=== PATIENT | female | born 1965 | race African-American/Black ===

== ENCOUNTER → 2022-11-26 10:40 | Outpatient (CLI) | payer OTHER, SELFPAY ==
[2022-11-26 11:37] LABS: Hematocrit 40.5 % (36-46); Hemoglobin 13.4 g/dL (12.0-16.0); Mean Corpuscular HGB Conc 33.1 % (30-36); Mean Corpuscular Hemoglobin 29.6 PG (26-34); Mean Corpuscular Volume 89.3 fL (80-100); Platelet Count 338 X10^3/uL (150-400); Red Blood Cell Count 4.54 X10^6/uL (4.0-5.2); Red Cell Distribution Width 14.3 % (11.6-14.8); White Blood Cell Count 3.6 X10^3/uL (4.5-11.0)
[2022-11-26 11:47] LABS: Hemoglobin A1C% w Est Avg Glu 5.8 % (4.0-6.0)
[2022-11-26 12:30] LABS: Alanine Aminotransferase 34 IU/L (<35); Albumin 4.3 g/dL (3.5-5.0); Albumin Globulin Ratio 1.7 (1.0-2.8); Alkaline Phosphatase 76 U/L (38-126); Aspartate Aminotransferase 34 IU/L (14-36); BUN Creatinine Ratio 17.2 (6-22); Bilirubin Total 0.5 mg/dL (0.2-1.3); Blood Urea Nitrogen 15 mg/dL (7-17); Calcium 9.7 mg/dL (8.4-10.2); Carbon Dioxide 26 mmol/L (22-32); Chloride 102 mmol/L (98-107); Cholesterol 246 mg/dL (140-199); Estimated Glomerular Filt Rate > 60 mL/min (>60); Globulin 2.6 g/dL (1.7-4.1); Glucose 80 mg/dL (70-100); Potassium 4.5 mmol/L (3.4-5.1); Sodium 136 mmol/L (137-145); Total Protein 6.9 g/dL (6.3-8.2); Triglycerides 69 mg/dL (35-150)
[2022-11-26 12:38] LABS: HEMOLYSIS < 15 (0-50)
[2022-11-26 12:58] LABS: TSH w/ Reflex to FT4 4.58 uIU/mL (0.47-4.68)
[2022-11-26 13:05] LABS: HDL Cholesterol 119 mg/dL (40-60); LDL Cholesterol Calculated 113 mg/dL (<100)
== END ==
PROVIDERS: PCP Registered Nurse Diabetes Educator; Referring Provider Registered Nurse Diabetes Educator; Visit Provider Registered Nurse Diabetes Educator
DX: Z00.00 Encounter for general adult medical examination without abnormal findings (principal); E89.0 Postprocedural hypothyroidism
CPT/HCPCS: 36415; 80053; 80061; 83036; 84443; 85027

== ENCOUNTER → 2023-03-28 08:28 | Outpatient (CLI) | payer OTHER, SELFPAY ==
[2023-03-28 10:37] LABS: TSH w/ Reflex to FT4 2.41 uIU/mL (0.47-4.68)
== END ==
PROVIDERS: PCP Registered Nurse Diabetes Educator; Referring Provider Registered Nurse Diabetes Educator; Visit Provider Registered Nurse Diabetes Educator
DX: E89.0 Postprocedural hypothyroidism (principal)
CPT/HCPCS: 36415; 84443

== ENCOUNTER → 2023-05-20 10:39 | Outpatient (CLI) | payer OTHER, SELFPAY ==
[2023-05-20 11:17] LABS: Add Manual Diff / Slide Review NO; Basophils Absolute Auto 0 /uL (0-100); Basophils Percent Auto 0.5 % (0-2); Eosinophils Absolute Auto 100 /uL (0-450); Eosinophils Percent Auto 1.4 % (2-4); Hematocrit 39.5 % (36-46); Hemoglobin 13.1 g/dL (12.0-16.0); Lymphocytes Absolute Auto 2300 /uL (1100-4500); Mean Corpuscular HGB Conc 33.2 % (30-36); Mean Corpuscular Hemoglobin 29.6 PG (26-34); Mean Corpuscular Volume 89.2 fL (80-100); Monocytes Absolute Auto 400 /uL (0-900); Monocytes Percent Auto 7.4 % (3-14); Neutrophils Absolute Auto 2000 /uL (1500-7000); Neutrophils Percent Auto 41.7 % (50-75); Platelet Count 274 X10^3/uL (150-400); Red Blood Cell Count 4.43 X10^6/uL (4.0-5.2); Red Cell Distribution Width 13.5 % (11.6-14.8); White Blood Cell Count 4.7 X10^3/uL (4.5-11.0)
[2023-05-20 11:36] LABS: Alanine Aminotransferase 27 IU/L (<35); Albumin 4.5 g/dL (3.5-5.0); Alkaline Phosphatase 71 U/L (38-126); Aspartate Aminotransferase 29 IU/L (14-36); Bilirubin Total 0.7 mg/dL (0.2-1.3); Bilirubin Unconjugated 0.4 mg/dL (0.0-1.1); Globulin 2.3 g/dL (1.7-4.1); HEMOLYSIS < 15 (0-50); Total Protein 6.8 g/dL (6.3-8.2)
== END ==
LOC: LAB 10:43
PROVIDERS: PCP Registered Nurse Diabetes Educator; Referring Provider Podiatrist; Visit Provider Podiatrist
DX: B35.1 Tinea unguium (principal)
CPT/HCPCS: 36415; 80076; 85025

== ENCOUNTER → 2023-05-28 09:51 | Outpatient (CLI) | payer OTHER, SELFPAY ==
--- NOTE | 2023-05-28 09:53 | DI.RAD.S_ITS ---
PROCEDURE: XR FINGER LT MIN 2V INDICATIONS: Left thumb pain TECHNIQUE: AP hand, 2 views of the thumb finger(s) acquired. COMPARISON: None. FINDINGS: Bones: No fractures or dislocations. No suspicious bony lesions. Mild 1st carpometacarpal triscaphe osteoarthritic change. Soft tissues: No suspicious soft tissue calcifications. IMPRESSION: No acute bony abnormality. Mild osteoarthritic changes at the base of the thumb. Dictated by: Jose Sanabria M.D. on 05/28/2023 at 13:12 Approved by: Jose Sanabria M.D. on 05/28/2023 at 13:16
== END ==
LOC: RAD 09:52
PROVIDERS: PCP Registered Nurse Diabetes Educator; Referring Provider Nurse Practitioner Family; Visit Provider Nurse Practitioner Family
DX: M79.645 Pain in left finger(s) (principal)
CPT/HCPCS: 73140

== ENCOUNTER → 2023-10-12 15:52 | Outpatient (CLI) | payer OTHER, SELFPAY ==
--- NOTE | 2023-10-12 15:53 | DI.RAD.S_ITS ---
PROCEDURE: XR FOREARM LT 2V INDICATIONS: Fall down stairs on 10/05 - pain ulnar side proximal to wris TECHNIQUE: 2 views of the forearm were acquired. COMPARISON: None. FINDINGS: Bones: No fractures or dislocations. No suspicious bony lesions. Soft tissues: No suspicious soft tissue calcifications or masses. IMPRESSION: No visualized acute fracture or dislocation. However, if clinical concern and/or pain persist, short interval imaging followup in 7-10 days is recommended, as occult injury cannot be definitively excluded. Dictated by: Astrid Felix M.D. on 10/13/2023 at 11:16 Approved by: Astrid Felix M.D. on 10/13/2023 at 11:16
--- NOTE | 2023-10-12 15:53 | DI.RAD.S_ITS ---
PROCEDURE: XR FOOT RT MIN 3V INDICATIONS: Fall down stairs on 10/05 - pain 2nd metatarsal TECHNIQUE: 3 views of the foot were acquired. COMPARISON: None. FINDINGS: Bones: ORIF of the distal fibula. Hardware is intact without hardware fracture or periprosthetic lucency to suggest loosening. Alignment is stable. Calcaneal spur is present. Soft tissues: No tibiotalar joint effusion. Achilles tendon appears normal. IMPRESSION: No visualized acute fracture or dislocation. However, if clinical concern and/or pain persist, short interval imaging followup in 7-10 days is recommended, as occult injury cannot be definitively excluded. Dictated by: Astrid Felix M.D. on 10/13/2023 at 11:16 Approved by: Astrid Felix M.D. on 10/13/2023 at 11:19
== END ==
PROVIDERS: PCP Registered Nurse Diabetes Educator; Referring Provider Physician Assistant; Visit Provider Physician Assistant
DX: M77.31 Calcaneal spur, right foot (principal); M79.671 Pain in right foot; M79.632 Pain in left forearm; W10.8XXA Fall (on) (from) other stairs and steps, initial encounter; Z96.60 Presence of unspecified orthopedic joint implant
CPT/HCPCS: 73090; 73630

== ENCOUNTER → 2023-11-16 14:52 | Outpatient (CLI) | payer OTHER, SELFPAY ==
[2023-11-16 15:34] LABS: Add Manual Diff / Slide Review NO; Basophils Absolute Auto 100 /uL (0-100); Basophils Percent Auto 1.6 % (0-2); Eosinophils Absolute Auto 100 /uL (0-450); Eosinophils Percent Auto 2.4 % (2-4); Hematocrit 38.9 % (36-46); Lymphocytes Absolute Auto 2200 /uL (1100-4500); Lymphocytes Percent Auto 48.5 % (25-40); Mean Corpuscular HGB Conc 33.4 % (30-36); Mean Corpuscular Hemoglobin 29.6 PG (26-34); Mean Corpuscular Volume 88.7 fL (80-100); Monocytes Absolute Auto 300 /uL (0-900); Monocytes Percent Auto 7.2 % (3-14); Neutrophils Absolute Auto 1800 /uL (1500-7000); Neutrophils Percent Auto 40.3 % (50-75); Platelet Count 308 X10^3/uL (150-400); Red Blood Cell Count 4.39 X10^6/uL (4.0-5.2); Red Cell Distribution Width 14.2 % (11.6-14.8); White Blood Cell Count 4.4 X10^3/uL (4.5-11.0)
[2023-11-16 16:22] LABS: BUN Creatinine Ratio 16.3 (6-22); Blood Urea Nitrogen 14 mg/dL (7-17); Calcium 9.5 mg/dL (8.4-10.2); Carbon Dioxide 27 mmol/L (22-32); Chloride 103 mmol/L (98-107); Estimated Glomerular Filt Rate > 60 mL/min (>60); Glucose 114 mg/dL (70-100); HEMOLYSIS < 15 (0-50); Potassium 3.4 mmol/L (3.4-5.1); Sodium 135 mmol/L (137-145)
[2023-11-16 16:35] LABS: Hemoglobin A1C% w Est Avg Glu 5.4 % (4.0-6.0)
[2023-11-16 17:31] LABS: Appearance Urine UA CLEAR; Bilirubin Urine UA NEGATIVE (NEGATIVE); Color Urine UA YELLOW; Glucose Urine UA NEGATIVE (Negative); Ketones Urine UA NEGATIVE (NEGATIVE); Leukocyte Esterase Urine UA NEGATIVE (NEGATIVE); Nitrite Urine UA NEGATIVE (Negative); Occult Blood Urine UA NEGATIVE (Negative); Protein Urine UA NEGATIVE (Negative); Urobilinogen Urine UA 0.2 E.U./dL (0.2)
[2023-11-16 17:55] LABS: Bacteria Urine None Seen; RBC Urine None Seen (0-5/HPF); Squamous Epithelial Cell Urine 0-1 /HPF (0-5/HPF); Urine Volume 10mL (spun); WBC Urine None Seen (0-5/HPF)
[2023-11-16 17:56] LABS: Culture Indicated Urine Cult Not Indicated
== END ==
PROVIDERS: PCP Registered Nurse Diabetes Educator; Referring Provider Registered Nurse Diabetes Educator; Visit Provider Registered Nurse Diabetes Educator
DX: Z01.818 Encounter for other preprocedural examination (principal)
CPT/HCPCS: 80048; 81001; 83036; 85025

== ENCOUNTER 2023-12-19 05:59 | Day surgery (SDC) | payer OTHER, SELFPAY ==
[2023-12-11 12:52] VITALS: BMI 27.3
[2023-12-19] VITALS (14 sets, daily range): BP systolic 124–181; BP diastolic 76–100; PULSE 55–75; RESP 9–25; TEMP 35.6–36.8; O2SAT 99–100; BMI 26.6
--- NOTE | 2023-12-19 | DI.RAD.S_ITS ---
PROCEDURE: XR HIP W PEL IF DONE RT 2V INDICATIONS: RIGHT ANTERIOR TERESA TECHNIQUE: Low resolution intraoperative fluoroscopic spot films were obtained COMPARISON: None. FINDINGS: Intraoperative fluoroscopic spot films show right anterior total hip arthroplasty in good position IMPRESSION: Fluoroscopic guidance Approved by: Lukas Sotelo M.D. on 12/19/2023 at 12:14
--- NOTE | 2023-12-19 06:00 | DI.RAD.S_ITS ---
PROCEDURE: XR HIP W PEL IF DONE RT 2V INDICATIONS: TERESA TECHNIQUE: 2 view(s) of the hip acquired. COMPARISON: [facility], CR, XR HIP W PEL IF DONE RT 2V, 12/19/2023, 9:09. FINDINGS: Bones: Patient is status post right hip arthroplasty, with hardware components in expected positions. The hip joint appears congruent. The visualized bony structures appear intact. Soft tissues: Overlying postoperative changes are noted. No suspicious soft tissue densities. IMPRESSION: Expected post-operative appearance of a hip arthroplasty. Dictated by: Mary Quispe MD, PhD on 12/19/2023 at 11:28 Approved by: Mary Quispe MD, PhD on 12/19/2023 at 11:28
[2023-12-19] MEDS: LACTATED RINGERS 1,000 ML 42 ML IV (06:53)
[2023-12-19] MEDS: VANCOMYCIN 1,000 MG/200 ML PIGGYBACK 200 MG IV ×2 (06:53→18:56)
[2023-12-19] MEDS: ACETAMINOPHEN 325 MG TABLET 975 MG PO (06:56)
[2023-12-19] MEDS: CELECOXIB 200 MG CAPSULE PO (06:56)
--- NOTE | 2023-12-19 07:31 | PM.PREOP ---
Pre-operative Note Interval Note History & Physical reviewed/Exam performed by Physician: Yes Changes to H&P: No H&P completed within 30 days and has changed as indicated here:: Discussed in detail critical importance of wound care and keeping her incision dry postoperatively.
--- NOTE | 2023-12-19 07:32 | PM.OP.1 ---
Operative Date/Time/Diagnoses Date of procedure: 12/19/23 Time of procedure: 08:00 Pre-op diagnosis: Right hip osteoarthritis Post-op diagnosis: same Procedure & Clinicians Procedure: Right total hip arthroplasty anterior approach Same procedure as scheduled: Yes Indications: The patient has had progressively worsening right hip pain with radiographic changes consistent with arthritis. Non-operative management has failed and the patient has requested total hip replacement. The risks, benefits and alternatives to surgery were discussed with the patient prior to proceeding. Risks discussed included, but were not limited to, failure to relieve pain, leg length discrepancy, dislocation, stiffness, infection, nerve damage, deep venous thrombosis, pulmonary embolism, stroke, coma, heart attack, permanent paralysis and , as well as the potential need for eventual revision of the prosthetic. Surgeon: Maryam Burleson Installation And Repair Technician: Alex Whyte Anesthesia Type: General and Spinal Operative Notes Findings: Severe right hip OA, very tight femoral bone, hard bone adequate stability, small canal, adequate stability Closure Type: primary Specimen(s): none sent Prosthetic devices, grafts, tissues, transplants, or devices: [employer] R3 52, neutral poly liner, one 6.5 mm screw, standard anthology size 3 stem, Oxinium 36 x -3 Estimated Blood Loss (mL): 250 Blood products transfused: none Procedure in detail: The patient was brought to the operating room. Patient was carefully positioned in the supine position. Time-out was performed and antibiotics were given. Anesthesia was induced. She was positioned in the on the table in order to allow hyperextension of the hip. The right lower extremity was prepped and draped in a standard sterile fashion. An anterior right hip incision was made 1 fingerbreadth lateral to the anterior superior iliac spine and extended distally towards the greater trochanter. Dissection was carried out through skin and subcutaneous tissues. Superficial hemostasis was achieved. The fascia over the tensor fascia speedy was defined and incised with a knife. Two Allis clamps were used to grasp the fascia. Tensor fascia speedy was retracted laterally. A gelpi retractor was placed. Dissection was carried out down along the neck. The circumflex vessels were carefully identified and cauterized with the Aqua Mantis. A PA was used during the procedure and was essential for intraoperative retraction and safe implantation of the components. There was good visualization of the femoral neck. A Cobra was placed superior to the neck and the gluteus fibers were carefully stripped from that superior aspect of the capsule. A 2nd retractor was placed along the inferior aspect of the neck. The rectus insertion along the capsule was partially released. A 3rd retractor that was then gently placed over the rim of the acetabulum under the rectus. Capsule was carefully incised and released from the intertrochanteric line circumferentially superior to the mid sagittal line and inferiorly to the mid sagittal line until the lesser trochanter was palpable. A tag stitch was placed both in the superior and inferior limb of the capsular insertion. Along the acetabulum capsule was also released up to the mid sagittal 12:00 position. A portion of the labrum was resected. A saw was used to perform an osteotomy at the level of the intertrochanteric line and the junction of the superior femoral neck leaving approximately 1 finger breath of residual inferior neck above the lesser trochanter. A 2nd cut was made along the femoral neck at the base of the head and a napkin ring of neck was removed. Corkscrew was placed in the femoral head and the head was removed without difficulty. Retractors were then repositioned around the acetabulum. Residual labrum was resected and additional osteophytes were removed. A reamer that was 4 mm below the templated size was placed by hand in the acetabulum and it was reamed to centralize the acetabulum. It was then reamed up to 2 under the templated size and fluoroscopy was brought in to confirm the position of the reaming and depth of reaming. I reamed 1 under the anticipated size. A trial cup was placed and noted that it was appropriately sized and fluoroscopy confirmed position and depth. The component was open and inserted without difficulty fluoroscopic imaging was used to confirm that the cup had been adequately seated and was well positioned. It was further stabilized with a single screw. Neutral poly liner was placed. The cup was tested and noted to be stable. Attention was then directed to the femur. The femur was gently hyperextended additional capsular release was performed as needed in order to allow adequate visualization of the proximal femur with elevation of the femur. Patient was placed in a hyperextended slightly adducted position with maximum external rotation. Box osteotome was used to check for any residual neck as well as sclerotic bone along the trochanter. [place] pepper was placed in the femur. Additional broaching was performed. Canal finder was used to determine the alignment of the canal and position. The patient had a significant anterior bow and an extremely tight canal. We had both polar technology and anthology technology available. It was quite tight with an anthology. Size 1 broach was placed. The size 1 broach was quite tight in the canal. We checked the the broach position with AP and lateral and it looked like it was well centralized in the canal. The canal was then appropriately broached up to the templated size as long as there was adequate stability of the broach and serial advancement of the broach without excessive impingement. Specific attention was directed at avoiding varus attempting to direct the distal aspect of the broach more anteriorly and avoiding excessive anteversion. Trial reduction showed acceptable range of motion, good stability, no posterior impingement, congregation of leg length and appropriate lateral shuck. I also hyperflexed the hip and checked that there was no impingement anteriorly and there was good stability with flexion, adduction and internal rotation. Marcaine and Exparel 266 mg for postoperative pain relief were injected. The stem was placed without difficulty. Repeat trial reduction and x-ray showed acceptable overall position, length, and no evidence of the femoral fracture. Final head was placed. Wound was meticulously irrigated with normal saline. The hip was reduced and additional Exparel and Marcaine were injected. The capsule was closed with interrupted nonabsorbable sutures. The fascia of the tensor was closed with interrupted and running Vicryl. No drain was placed. Any tensor fascia speedy muscle that appeared to be contused or injured which was a minimal amount was carefully resected. Capsule around the tensor was injected with Exparel and Marcaine. The skin was closed with barbed stitches for the subcutaneous tissue and skin. We also used surgical glue. The wound was dressed sterilely. It was meticulously irrigated with normal saline. Patient was transferred to recovery room in satisfactory condition. Complications: none Post-operative Condition: stable Disposition: Acute Care Plan for aftercare: The patient will be maintained on a standard total hip replacement protocol with weight bearing as tolerated and anterior hip precautions. The patient will receive Aspirin and sequential compression devices for DVT prophylaxis. The patient will be discharged home when safe for the home environment.
[2023-12-19] MEDS: CLINDAMYCIN 900 MG/50 ML PIGGYBACK 50 MG IV (07:58)
--- NOTE | 2023-12-19 08:15 | SUR.OPER ---
Supine on padded [place] table with bilateral legs secured in padded positioning boots and suspended in positioning spars, operative leg in traction per surgeon. Head on one pillow. Arm on non-operative side secured on padded armboard <90 degrees abduction. Arm on operative side padded and resting across chest then secured with tape over sheet. Padded perineal post in place per surgeon.
[2023-12-19] MEDS: TRANEXAMIC ACID 1,000 MG VIAL 1000 MG INJ ×2 (08:47→10:31)
[2023-12-19] MEDS: BUPIVACAINE LIPOSOME 266 MG/20 ML VIAL INJ (10:30)
[2023-12-19] MEDS: BUPIVACAINE 0.25% (PF) 60 ML, EPINEPHrine 0.3 MG INJ (10:30)
[2023-12-19] MEDS: ONDANSETRON 4 MG/2 ML INJ IV ×4 (11:05→21:02)
[2023-12-19] MEDS: HYDROMORPHONE 2 MG TABLET PO ×3 (11:13→21:13)
[2023-12-19] MEDS: HYDROMORPHONE 0.5 MG INJ IV (12:31)
[2023-12-19] MEDS: LACTATED RINGERS 1,000 ML 100 ML IV (12:31)
[2023-12-19] MEDS: ACETAMINOPHEN 325 MG TABLET 650 MG PO ×2 (12:32→21:13)
[2023-12-19] MEDS: OXYCODONE IR 5 MG TABLET PO ×2 (12:32→16:30)
[2023-12-19] MEDS: IBUPROFEN 400 MG TABLET PO ×3 (12:32→23:06)
--- NOTE | 2023-12-19 15:30 | OT.IP.EVAL ---
Current Diagnoses Unilateral primary osteoarthritis, right hip (12/19/23) Surgery Performed Operation Date: 12/19/23 07:45 Actual Procedures p Total Hip Arthroplasty/Anterior Approach(Right) - Maryam Burleson MD Past Medical History (Last Updated 12/03/23 @ 08:26 by DILEEP Saldaña) Bipolar disorder in partial remission History of electroconvulsive therapy History of thyroid cancer Migraine without aura and without status migrainosus, not intractable Obstructive sleep apnea On hormone replacement therapy Postoperative hypothyroidism Surgical History (Last Updated 12/11/23 @ 13:24 by Radha Clements RN) Delivery by section (2004) H/O arthroscopy of right knee (2005) History of ankle surgery (~1989) History of Kan-en-Y gastric bypass (2015) History of thyroidectomy, total (2007) Occupational Therapy Inpatient Evaluation/Re-Eval M1 PT/OT-IP Prior Functional Status Start: 12/19/23 15:42 Freq: NEEDED Status: Active Protocol: Document 12/19/23 15:43 [facility] (Rec: 12/19/23 15:59 [facility] [id number]) Medical Review Prior Functional Status Communication Independent Mobility and Gait Pt had pain but able to ambulate. Activities of Daily Living and IADL's Pt able to do ADL and IADL needs but had pain. Social History Household Members none Living Arrangements House Number of Floors (Floors) Two Floors Number of Stairs To Enter/Railing? 2 stairs without railing to enter. Main floor living. Home Environment High Toilet,Walk in Shower Home Equipment Front Wheel Walker,Hand Held Shower,Grab Bars Near Toilet Additional Social History Comment Pt states her neighbor can assist her. M2 OT-IP Current Condition Start: 12/19/23 15:42 Freq: Status: Active Protocol: Document 12/19/23 15:43 [facility] (Rec: 12/19/23 15:59 [facility] [id number]) Occupational Therapy Current Condition Current Condition Evaluation Date 12/19/23 Treatment Diagnosis S/P R TERESA Anterior approach Diagnosis Onset Date 12/19/23 Post Operative Precautions Anterior Hip Precautions No Hip Extension,No Hip External Rotation Other Precautions Do not hyperextend M3 OT- IP Subjective and Pain Start: 12/19/23 15:42 Freq: Status: Active Protocol: Document 12/19/23 15:43 [facility] (Rec: 12/19/23 15:59 [facility] [id number]) OT- Subjective Occupational Therapy Visit Type Type Initial Evaluation Visit Start Time 14:35 Visit Stop Time 15:30 Occupational Therapy Visit Comments Patient Comments Pt agreed to get up and try to use the BSC. Patient/Caregiver Goals To go home. OT Pain Assessment Pain When Pain Assessed At Rest Pain Present Pain Present Pain Reported Location right hip Intensity 7 Scale Used Numeric (0 - 10) M4 OT- IP ADL's Start: 12/19/23 15:42 Freq: Status: Active Protocol: Document 12/19/23 15:43 [facility] (Rec: 12/19/23 15:59 [facility] [id number]) OT [id number] Comments OT Self-Feeding Comments Pt states able to eat yogurt earlier. OT ADL-Grooming Comments OT Grooming Comments Pt able to wash her face after set-up. OT ADL-Oral Care Comments Oral Care Comments Pt able to rinse her mouth out after dry heaving. OT ADL-Dressing General Eval Lower Body Dressing Ability Maximum Assistance Areas Needing Assistance Underpants/Brief,Socks Comments OT Dressing Comments Able to show pt LB dressing equipment and able to practice . OT ADL-Toileting General Evaluation Toileting Ability Maximum Assistance Comments OT Toileting Comments At this time needing MAXA for brief management and unable to feel her aleah area at this time to be able to wipe effectively. OT ADL-Bathing Comments OT Bathing Comments Pt will benefit from shower chair and assist. M5 OT- IP IADL's Start: 12/19/23 15:42 Freq: Status: Active Protocol: Document 12/19/23 15:43 [facility] (Rec: 12/19/23 15:59 [facility] [id number]) OT-Instrumental Activities of Daily Living Deficits IADL Deficits Identified No Deficits Home Safety Awareness Home Safety Comments Pt not feeling or thinking well at this time as very light headed. Medication Management Medication Management Comments Prior pt able to care for herself. Money Management Money Management Comments Prior pt works from home. Meal Preparation Meal Preparation Comments Pt will benefit from assist. Um Rn Um Rn Comments Pt will benefit from assist. M6 OT- IP Functional Cognition Start: 12/19/23 15:42 Freq: Status: Active Protocol: Document 12/19/23 15:43 [facility] (Rec: 12/19/23 15:59 [facility] [id number]) Cognitive Factors Limiting Selfcare Function Cognitive Ability Level of Alertness Drowsy Patient Orientation Name,Place,Situation Attention Span Ability Capable of Focused Attention, Capable of Sustained Attention ,Unable to Sustain Attention Ability to Follow Commands Able to Follow One Step Commands with Increased Time, Able to Follow One Step Commands with Repetition Safety Awareness Decreased Recall of Precautions Cognitive Comments Cognitive Assessment Comments Pt very groggy and light headed and needing step by step commands to follow. Pt still not able to feel when she has to urinate at this time. OT- Vision and Hearing OT- Hearing Assessment OT- Hearing Assessment WFL OT- Vision Assessment Visual Acuity Glasses For Reading Visual Attentiveness WFL Occular Pursuits WFL M7 OT- IP Mobility and Balance Start: 12/19/23 15:42 Freq: Status: Active Protocol: Document 12/19/23 15:43 [facility] (Rec: 12/19/23 15:59 [facility] [id number]) OT- Bed Mobility Assessment Supine to Sit Supine to Sit Assist Minimal Assistance Sit to Supine Sit to Supine Assist Moderate Assistance Scooting Scooting to Edge of Bed Contact Guard Assistance OT-Transfer Assessment Sit to and From Stand Sit to and from Stand Minimal Assistance Transfers Transfer Ability Minimal Assistance Technique Transfer Destination Bed,Bedside Commode Transfer Technique Stand Step Pivot Devices Transfer Assistive Devices Gait Belt,Front Wheeled Walker Comments Mobility Comments Assist to get her RLE to the edge of the bed and cues to keep her toes up. MODA to get her RLE back to bed. ALFA to stand to the FWW and assist to guide the FWW initially. BP supine with HOB up 172/103, 162/104, and 164/86. BP supine 154/86 and after sitting again 148/82- pt feeling light headed and nursing notified. OT- Balance Assessment Sitting Balance and Reactions Static Sitting Balance Ability Good Dynamic Sitting Balance Ability Fair Standing Balance and Reactions Static Standing Balance Ability Fair Dynamic Standing Balance Ability Fair M8 OT- IP Objective Assessments Start: 12/19/23 15:42 Freq: Status: Active Protocol: Document 12/19/23 15:43 [facility] (Rec: 12/19/23 15:59 [facility] [id number]) OT Gross Range of Motion Upper Extremity Range of Motion Assessment Within Functional Limits OT Strength Upper Extremity Strength Assessment Within Functional Limits OT Sensation Assessment Comments Summary Comments Decreased sensation in aleah- area and right foot. M9 OT- IP Assessment and Plan Start: 12/19/23 15:42 Freq: Status: Active Protocol: Document 12/19/23 15:43 [facility] (Rec: 12/19/23 15:59 [facility] [id number]) OT Summary Assessment and Plan Potential Rehabilitation Potential Excellent Analytic Complexity at Evaluation Low Summary OT Impairments Pain,Balance,Functional Mobility,Dressing,Toileting, Bathing,Toilet Transfers, Shower Transfers,Activity Tolerance Progress Towards Goals Slow Progress due to Pain,Slow Progress due to Medical Issues,Slow Progress due to Activity Tolerance Assessment Summary Pt low complexity and main barriers are steps, still groggy and lightheaded after having surgery this morning. At this time pt would benefit from 24/7 assist at home especially as she has dogs at home. Pt having difficulty to feel and empty her bladder at this time. Pt to go home with 24/7 assist when medically stable. Pt will benefit from BSC, shower chair, pads/brief and LB dressing equipment. Goals Grooming Goal Independent Dressing Goal Independent Toileting Goal Independent Bathing Goal Minimal Assistance Toilet Transfer Goal Independent Shower Transfer Goal Standby Assistance Days to Meet Goals 5 Frequency of Treatment Other frequency 5x/week Treatment Plan OT Treatment Plan ADL Training,Functional Mobility,Patient/Family Education,Discharge Planning Other Treatment Recommendations and Next Standing ADL's Treatment Focus Discharge Recommendations OT Discharge Recommendations Home with 24/7 Assist Available,Outpatient PT Home Equipment Needs BSC, shower chair, pads/brief, LB dressing equipment Transportation Needs at Discharge Private Vehicle
--- NOTE | 2023-12-19 16:10 | PT.IIE ---
Current Diagnoses Unilateral primary osteoarthritis, right hip (12/19/23) Surgery Performed Operation Date: 12/19/23 07:45 Actual Procedures p Total Hip Arthroplasty/Anterior Approach(Right) - Maryam Burleson MD Surgical History (Last Updated 12/11/23 @ 13:24 by Radha Clements RN) Delivery by section (2004) H/O arthroscopy of right knee (2005) History of ankle surgery (~1989) History of Kan-en-Y gastric bypass (2015) History of thyroidectomy, total (2007) Medical History (Last Updated 12/03/23 @ 08:26 by DILEEP Saldaña) Bipolar disorder in partial remission History of electroconvulsive therapy History of thyroid cancer Migraine without aura and without status migrainosus, not intractable Obstructive sleep apnea On hormone replacement therapy Postoperative hypothyroidism Physical Therapy Inpatient Evaluation/Re-Eval M1 PT/OT-IP Prior Functional Status Start: 12/19/23 16:55 Freq: NEEDED Status: Active Protocol: Document 12/19/23 16:10 AB (Rec: 12/19/23 17:10 AB [id number]) Medical Review Prior Functional Status Medical History Reviewed Yes Communication able to make needs known Mobility and Gait pt stated that she was independent with all mobilities and ambulation without AD Activities of Daily Living and IADL's per OT note: Pt able to do ADL and IADL needs but had pain. Social History Household Members none Living Arrangements House Number of Floors (Floors) Two Floors Number of Stairs To Enter/Railing? pt stays on the main level of the house has 2 steps without rails to enter the house Home Environment High Toilet,Walk in Shower Home Equipment Front Wheel Walker,Hand Held Shower,Grab Bars Near Toilet, Grab Bars In Shower Additional Social History Comment pt stated that her friend/ neighbor will be able to stay with her to assist if needed M2 PT-IP Current Condition Start: 12/19/23 16:55 Freq: NEEDED Status: Active Protocol: Document 12/19/23 16:10 AB (Rec: 12/19/23 17:10 AB [id number]) Physical Therapy Current Condition Current Condition Evaluation Date 12/19/23 Treatment Diagnosis s/p R TERESA anterior; difficulty in walking Onset Date 12/19/23 M3 PT-IP Subjective Start: 11/12/24 16:55 Freq: NEEDED Status: Active Protocol: Document 12/19/23 16:10 AB (Rec: 12/19/23 17:10 AB [id number]) Subjective Physical Therapy Visit Type Type Initial Evaluation Visit Start Time 16:10 Visit Stop Time 16:50 Number of BLANKET WINDER OPERATOR Visits 0 Physical Therapy Visit Comments Patient Comments want to use the toilet Therapy Pain Assessment Pain When Pain Assessed At Rest Pain Present Pain Present Pain Reported Location right hip Intensity 7 Scale Used increases with movement Pain Management Techniques Apply Cold,Distraction, Modification of Treatment,Re- positioning,Timing of Activity with Medications M4 PT-IP Mobility and Gait Start: 12/19/23 16:55 Freq: NEEDED Status: Active Protocol: Document 12/19/23 16:10 AB (Rec: 12/19/23 17:10 AB [id number]) PT-Bed Mobility Assessment Supine to Sit Supine to Sit Minimal Assistance Sit to Supine Sit to Supine Maximum Assistance,1 Person Assistance,Head of Bed Elevated PT-Transfer Assessment Sit to and From Stand Sit to and from Stand Maximum Assistance,1 Person Assistance,Use of Upper Extremities Equipment Transfer Assistive Device Gait Belt,Front Wheeled Walker Orthotic/Prosthetic Devices or Brace: No Transfers Transfer Destination Bedside Commode Transfer Technique Stand Step Pivot Transfer Ability Level of Assist Moderate Assistance,Maximum Assistance,1 Person Assistance ,Use of Upper Extremities Comments Mobility Comments pt supine in bed and agreeable to do PT. pt wants to use the toilet. obtained PLOF and home set up. reviewed hip precautions and pt unable to recall. needed cues with all tasks. BP: 138/70 completed supine to sit with HOB elevated min A and max cues for techniques. c/o increase hip pain. able to sit on EOB SBA. c/o nausea. BP checked: 156/80. pt stated that she does not think she can walk due to increase pain and wants to just use the bedside commode. completed sit to stand max A and step transfer to commode using FWW mod A and max cues. max A for controlled descent to chair. pt needed assist for brief management. completed sit to stand from the commode max A and cues. able to take a few steps towards HOB using fWW mod to max A and cues ~ 2 ft and sat on EOB. completed bed mobility sit to supine max A for elevating RLE up to bed. positioned pt in bed. ice pack positioned on R hip. NAC in room and took over pt's care. caregiver training set up at 9 am tomorrow. Gait Assessment Gait Gait Assistance Required: Moderate Assistance,Maximum Assistance Distance (Feet) 2 Assistive Devices Assistive Device Gait Belt,Front Wheeled Walker Gait Deviations General Gait Pattern Antalgic,Decreased Feet Clearance,Step-to Gait Factors Limiting Gait Function Factors Limiting Gait Function Decreased Activity Tolerance, Decreased Strength,Difficulty Following Directions,Limited Range of Motion,Pain,Poor Balance,Poor Safety Awareness Comments Gait Comments able to take steps towards [facility] for transfer PT-Balance Assessment Sitting Balance and Reactions Static Sitting Balance Ability Good Dynamic Sitting Balance Ability Fair Standing Balance and Reactions Static Standing Balance Ability Poor Dynamic Standing Balance Ability Poor Device Used FWW M5 PT-IP Objective Assessments Start: 12/19/23 16:55 Freq: NEEDED Status: Active Protocol: Document 12/19/23 16:10 AB (Rec: 12/19/23 17:10 AB [id number]) Orientation Orientation/Cognition Level of Alertness Alert Orientation Name,Place,Situation Safety Awareness Decreased Safety Awareness Memory Description Short Term Impaired Gross Range of Motion Lower Extremity ROM Assessment Within Functional Limits Strength Lower Extremity Strength Assessment Right Impaired Hip 3+/5 Knee 3+/5 Sensation Assessment Sensation Sensation Description Numbness Comments Sensation Comments buttocks/abdomen numbness and R foot numbness Muscle Tone Muscle Tone WNL Yes M6 PT-IP Treatment Start: 12/19/23 16:55 Freq: NEEDED Status: Active Protocol: Document 12/19/23 16:10 AB (Rec: 12/19/23 17:10 AB [id number]) Physical Therapy Treatment Exercises Exercises Heel Slides Education Education Provided Precautions,Weight Bearing Status,Post-Op Packet,Safety M7 PT-IP Assessment and Plan Start: 12/19/23 16:55 Freq: NEEDED Status: Active Protocol: Document 12/19/23 16:10 AB (Rec: 12/19/23 17:10 AB [id number]) PT Summary Assessment and Plan Potential Rehabilitation Potential Fair Status of Condition at Evaluation Evolving Summary Impairments Pain,ROM,Strength,Balance, Coordination,Sensation,Tone, Cognition,Bed Mobility, Transfers,Gait,Activity Tolerance Assessment Summary pt is a 58 y/o F s/p R TERESA anterior approach POD 0. pt with R anterior hip precautions and is WBAT. pt requiring mod to max A for transfers using fWW and unable to ambulate at this time but was able to take a few steps during transfer using fWW ~ 2 ft. pt with c/o increase R hip pain affecting mobility level . d/c plan depending on progress. will continue to assess. caregiver training set up for tomorrow at 9 am. Goals Bed Mobility Goal Standby Assistance Transfer Goal Standby Assistance,Front Wheeled Walker Gait Goal Standby Assistance,Front Wheel Walker Gait Distance 150 Other Goals improve bed mobility, transfers, ambulation using FWW ~ 200 ft mod I up/down 2 steps LOBBY PORTER/+SPC CGA Days to Meet Goals 5 Frequency of Treatment Frequency Of Treatment Twice a Day Treatment Plan Physical Therapy Treatment Plan Bed Mobility Training,Transfer Training,Gait Training, Therapeutic Exercise,Balance Retraining,Post Op Education, Discharge Planning,Hot or Cold Pack,Neuromuscular Re-ed, Coordination Retraining,Manual Therapy Other Recommendations and Next Treatment caregiver trainin12/20/23 @ [facility] 9 am Precautions Anterior Hip Precautions No Hip Extension,No Hip External Rotation Weight Bearing Status Weight Bearing Status Weight Bear as Tolerated Allowed Weight Bearing Amount (enter % RLE WBAT or #) (%) Recommendations To Nursing Amount of Assist Needed 1 Person Assist Discharge Recommendations PT Discharge Recommendations Home with 29/08 Assist Available,Home Health,SNF Rehab,Home vs SNF Transportation Needs at Discharge Private Vehicle,Wheelchair/ Cabulance
[2023-12-19] MEDS: METOCLOPRAMIDE 10 MG/2 ML INJ IV (18:13)
[2023-12-19] MEDS: DOCUSATE 100 MG CAPSULE PO (21:12)
[2023-12-19] MEDS: ASPIRIN EC 81 MG TABLET PO (21:12)
[2023-12-19] MEDS: PROGESTERONE, MICRONIZED 100 MG CAPSULE 200 MG PO (21:54)
[2023-12-20] MEDS: ONDANSETRON 4 MG/2 ML INJ IV (02:47)
[2023-12-20] MEDS: HYDROMORPHONE 2 MG TABLET PO ×3 (02:48→09:11)
[2023-12-20] MEDS: IBUPROFEN 400 MG TABLET PO (05:24)
[2023-12-20] MEDS: ACETAMINOPHEN 325 MG TABLET 650 MG PO (05:24)
[2023-12-20 06:24] LABS: Hematocrit 39.6 % (36-46)
--- NOTE | 2023-12-20 06:58 | DI.RAD.S_ITS ---
PROCEDURE: XR FEMUR RT MIN 2V INDICATIONS: s/p TERESA, now with sharp distal femur pain TECHNIQUE: 4 views of the femur were acquired. COMPARISON: None. FINDINGS: Bones: Total right hip arthroplasty intact without evidence of failure. No fractures or dislocations. No suspicious bony lesions. Moderate tricompartmental osteoarthritis of the right knee. Soft tissues: No suspicious soft tissue calcifications or masses. Moderate diffuse soft tissue muscle atrophy of the right lower extremity. IMPRESSION: 1. Moderate tricompartmental osteoarthritis of the right knee. 2. No acute skeletal or hardware abnormality. Dictated by: Remberto Cohn M.D. on 12/20/2023 at 9:22 Approved by: Remberto Cohn M.D. on 12/20/2023 at 9:24
--- NOTE | 2023-12-20 06:59 | PM.PNPO.1 ---
Subjective Subjective Date Patient Seen: 12/20/23 Time Patient Seen: 06:59 Interval history: Pt lying in bed on visit today. Worked with PT yesterday and things went well. Got up last night to use the commode and felt a sharp, stabbing pain in the region of her distal femur. Otherwise doing well. Exam Vital Signs (past 8 hours): Oxygen Delivery Method Room Air Oxygen Flow Rate 0 Narrative Exam Narrative: 4/5 hip flexors, quadriceps, hamstrings; 5/5 PF, DF, EHL on right. Sensation to light touch intact throughout RLE. Calf soft and compressible. Aquacel dressing CDI. Point tenderness to an area about 5-6 inches proximal to the patella. Objective Labs 12/20/23 05:30 Labs: Laboratory Results - last 24 hr 12/20/23 05:30 Hgb 13.0 Hct 39.6 PFSH Medical History (Updated 12/03/23 @ 08:26 by DILEEP Saldaña) On hormone replacement therapy Migraine without aura and without status migrainosus, not intractable History of electroconvulsive therapy Bipolar disorder in partial remission Obstructive sleep apnea Postoperative hypothyroidism History of thyroid cancer Surgical History (Updated 12/20/23 @ 07:20 by Shefali Coleman PA-C) Delivery by section (2004) H/O arthroscopy of right knee (2005) History of ankle surgery (~1989) History of Kan-en-Y gastric bypass (2015) History of thyroidectomy, total (2007) Social History household members: none Smoking Status: Never smoker alcohol intake: current Assessment & Plan Post-op Assessment and plan (1) S/P total hip arthroplasty: Assessment and Plan narrative: Will get urgent femur xray to r/o periprosthetic fracture. If xray is negative, pt would like to go home today. Requests Dilaudid for discharge as oxycodone causes severe nausea; we agreed that I would send an rx of hydrocodone for her to try. (2) History of Kan-en-Y gastric bypass: Assessment and Plan narrative: Discussed with patient that because of RYGBP history, she should never have NSAIDs again. Instructed her to throw away IBPN. She says her PCP, Dr Chairez, is willing to rx meloxicam if that would be a better option. I advised her that this should be ok: limit dose to 15mg max per day and time of use to 4 weeks. Postoperative Procedures: Procedures Operation Date: 12/19/23 07:45 Actual Procedure Side Surgeon p Total Hip Arthroplasty/Anterior Approach Right Maryam Burleson MD Postoperative day: 1
--- NOTE | 2023-12-20 07:02 | PC.NURSE ---
At about 0515 patient was getting back into bed after using the BSC and complained of a sharp pain to right upper mid thigh, about 3 inches below distal end of drsg. Area tender to the touch, soft. Denied any tingling or numbness. Ibuprofen and Tylenol given with minimal relief, then Dilaudid 2 mg po with good relief, patient fell asleep. Jared Funes here and aware.
[2023-12-20 08:00] VITALS: BP 140/76; PULSE 65; RESP 18; TEMP 36.8; O2SAT 100
[2023-12-20] MEDS: ASPIRIN EC 81 MG TABLET PO (09:11)
[2023-12-20] MEDS: DOCUSATE 100 MG CAPSULE PO (09:11)
[2023-12-20] MEDS: ONDANSETRON 4 MG ODT PO ×2 (09:11→12:20)
--- NOTE | 2023-12-20 09:35 | PT.IPTN ---
Current Diagnoses Unilateral primary osteoarthritis, right hip (12/19/23) Presence of unspecified artificial hip joint (12/19/23) Bariatric surgery status (12/19/23) Surgery Performed Operation Date: 12/19/23 07:45 Actual Procedures p Total Hip Arthroplasty/Anterior Approach(Right) - Maryam Burleson MD Physical Therapy Treatment Note M2 PT-IP Current Condition Start: 12/19/23 16:55 Freq: NEEDED Status: Active Protocol: Document 12/19/23 16:10 AB (Rec: 12/19/23 17:10 AB [id number]) Physical Therapy Current Condition Current Condition Evaluation Date 12/19/23 Treatment Diagnosis s/p R TERESA anterior; difficulty in walking Onset Date 12/19/23 M3 PT-IP Subjective Start: 12/19/23 16:55 Freq: NEEDED Status: Active Protocol: Document 12/20/23 10:23 TS (Rec: 12/20/23 10:36 TS [id number]) Subjective Physical Therapy Visit Type Type Treatment Note Visit Start Time 09:35 Visit Stop Time 10:00 Number of DRAWBRIDGE OPERATOR Visits 1 Physical Therapy Visit Comments Patient Comments Pt found resting in the bed, reports pain is 6/10, she is agreeable to PT. Therapy Pain Assessment Pain When Pain Assessed At Rest Pain Present Pain Present Pain Reported Location right hip Intensity 6 Scale Used Numeric (0 - 10) Pain Behaviors Facial Grimacing,Guarding, Holding Area,Wincing Pain Management Techniques Apply Cold,Distraction, Modification of Treatment,Re- positioning,Timing of Activity with Medications M4 PT-IP Mobility and Gait Start: 12/19/23 16:55 Freq: NEEDED Status: Active Protocol: Document 12/20/23 10:23 TS (Rec: 12/20/23 10:36 TS [id number]) PT-Bed Mobility Assessment Supine to Sit Supine to Sit Standby Assistance Sit to Supine Sit to Supine Minimal Assistance,1 Person Assistance Scooting Scooting to Edge of Bed Standby Assistance PT-Transfer Assessment Sit to and From Stand Sit to and from Stand Contact Guard Assistance,1 Person Assistance,Use of Upper Extremities Equipment Transfer Assistive Device Gait Belt,Front Wheeled Walker Orthotic/Prosthetic Devices or Brace: No Comments Mobility Comments Pt recalls 2/2 precautions. Supine to sit SBA with HOB elevated. Caregiver dons gait belt prior to STS.STS with FWW CGA, pt demonstrates good carryover. She ambulates in the room ~25'SBA with cues for step to gait sequencing. She performs steps x2 with use of SPC and ADON from caregiver. Pt has some difficulty with steps but does complete. Sit to supine into bed Jeremiah for RLE. Education provided to pt for intensity and frequency of ther-ex. Pt was left in bed, all needs met. Gait Assessment Gait Gait Assistance Required: Standby Assistance Distance (Feet) 25 Assistive Devices Assistive Device Gait Belt,Front Wheeled Walker Orthotic/Prosthetic Devices or Brace: No Gait Deviations General Gait Pattern Antalgic,Decreased Feet Clearance,Step-to Gait Factors Limiting Gait Function Factors Limiting Gait Function Decreased Activity Tolerance, Decreased Strength,Difficulty Following Directions,Limited Range of Motion,Pain,Poor Balance,Poor Safety Awareness Stair Climbing Assessment Evaluation Level of Assist On Stairs Moderate Assistance,1 Person Assistance Devices Stair Climbing Assistive Devices Straight Cane Technique/Endurance Stair Climbing Direction Ascend and Descend Stair Climbing Technique Step to Step Number of Steps Climbed 2 PT-Balance Assessment Sitting Balance and Reactions Static Sitting Balance Ability Good Dynamic Sitting Balance Ability Fair Standing Balance and Reactions Static Standing Balance Ability Fair Dynamic Standing Balance Ability Fair Device Used FWW M5 PT-IP Objective Assessments Start: 12/19/23 16:55 Freq: NEEDED Status: Active Protocol: Document 12/19/23 16:10 AB (Rec: 12/19/23 17:10 AB [id number]) Orientation Orientation/Cognition Level of Alertness Alert Orientation Name,Place,Situation Safety Awareness Decreased Safety Awareness Memory Description Short Term Impaired Gross Range of Motion Lower Extremity ROM Assessment Within Functional Limits Strength Lower Extremity Strength Assessment Right Impaired Hip 3+/5 Knee 3+/5 Sensation Assessment Sensation Sensation Description Numbness Comments Sensation Comments buttocks/abdomen numbness and R foot numbness Muscle Tone Muscle Tone WNL Yes M6 PT-IP Treatment Start: 12/19/23 16:55 Freq: NEEDED Status: Active Protocol: Document 12/20/23 10:23 TS (Rec: 12/20/23 10:36 TS [id number]) Physical Therapy Treatment Education Education Provided Precautions,Weight Bearing Status,Post-Op Packet,Safety M7 PT-IP Assessment and Plan Start: 12/19/23 16:55 Freq: NEEDED Status: Active Protocol: Document 12/20/23 10:23 TS (Rec: 12/20/23 10:36 TS [id number]) PT Summary Assessment and Plan Potential Rehabilitation Potential Fair Summary Impairments Pain,ROM,Strength,Balance, Coordination,Sensation,Tone, Cognition,Bed Mobility, Transfers,Gait,Activity Tolerance Progress Towards Goals Progressing Toward Goals Assessment Summary Pt is making some progress with her mobility. She is SBA for most bed mobility. She performed steps x2 with use of SPC and ADON from caregiver. Completing step was difficult for pt due to pain. She ambulates well with good step sequencing. PT is recommending pt return home with assist. Goals Bed Mobility Goal Standby Assistance Transfer Goal Standby Assistance,Front Wheeled Walker Gait Goal Standby Assistance,Front Wheel Walker Gait Distance 150 Other Goals improve bed mobility, transfers, ambulation using FWW ~ 200 ft mod I up/down 2 steps ADON/+SPC CGA Days to Meet Goals 5 Frequency of Treatment Frequency Of Treatment Twice a Day Treatment Plan Physical Therapy Treatment Plan Bed Mobility Training,Transfer Training,Gait Training, Therapeutic Exercise,Balance Retraining,Post Op Education, Discharge Planning,Hot or Cold Pack,Neuromuscular Re-ed, Coordination Retraining,Manual Therapy Precautions Anterior Hip Precautions No Hip Extension,No Hip External Rotation Weight Bearing Status Weight Bearing Status Weight Bear as Tolerated Allowed Weight Bearing Amount (enter % RLE WBAT or #) (%) Recommendations To Nursing Amount of Assist Needed 1 Person Assist Discharge Recommendations PT Discharge Recommendations Home with Assistance Transportation Needs at Discharge Private Vehicle
--- NOTE | 2023-12-20 11:08 | CM.DANOTE ---
Initial DCP Assessment Note Pt is a 58 yo female, resident of [place], now POD#1 from Rt hip surgery by Dr Burleson PCP: Eliot Dudley Payer: Kamlesh QUINONES Reviewed chart, pt discussed in multidisciplinary rounds this morning. Therapy has cleared pt for return home w/friend to assist and pt has planned for home, DC order from Ortho has already been initiated this morning. Met w/patient and her friend and neighbor Monica who plans to spend the evening tonight and as long as is needed from there. No barriers identified at this time to patient's safe discharge home w/friend to assist; close outpatient f/u recommended. CM team will plan to follow clinical course closely in case any DC needs or concerns arise. CAIN Cheung Discharge Planning/Care Management CM Discharge Assessment Start: 12/20/23 11:04 Freq: Status: Active Protocol: Document 12/20/23 11:04 MARTHA (Rec: 12/20/23 11:07 MARTHA [id number]) Discharge Planning Assessment Assigned Medical Accounts Receivable Specialist CAIN Redman DPOA/Assigned Designee Name Monica Adhikari - friend Contact Information [phone] Advance Directives? Yes Advance Directives on File No History Provided By Patient,Medical Record Prior Living Arrangements House Household Members none Type of transporation used prior to Drives own vehicle admit Independent with ADL's Yes Is patient alert and oriented? Yes Patient/Family Preference OP PT Therapy Barriers to Discharge No Discharge Plan Home Transportation Arrangement Friend Referrals Initiated None needed
[2023-12-20] MEDS: HYDROCODONE/ACET 5/325 TABLET 1 TAB PO (12:19)
--- NOTE | 2023-12-20 13:27 | PC.NURSE ---
Discharge: Pt feels ready to go home. Seen by PA and given discharge instructions. Seen by OT/PT and given their instructions. Has been able to void on own. PO pain med has been effective. Tolerates diet w/out problems. Discharge packet given and reviewed. Questions answered. Rx has been esent. Pt has a friend who will be staying with her. Pt d/c to home via auto with friend.
--- NOTE | 2023-12-20 13:44 | P.DS_ITS ---
History of Present Illness History of Present Illness Date Patient Seen: 12/20/23 Time Patient Seen: 07:00 Chief complaint: OPB Narrative: Operative Date/Time/Diagnoses Date of procedure: 12/19/23 Time of procedure: 08:00 Pre-op diagnosis: Right hip osteoarthritis Post-op diagnosis: same Procedure & Clinicians Procedure: Right total hip arthroplasty anterior approach Same procedure as scheduled: Yes Indications: The patient has had progressively worsening right hip pain with radiographic changes consistent with arthritis. Non-operative management has failed and the patient has requested total hip replacement. The risks, benefits and alternatives to surgery were discussed with the patient prior to proceeding. Risks discussed included, but were not limited to, failure to relieve pain, leg length discrepancy, dislocation, stiffness, infection, nerve damage, deep venous thrombosis, pulmonary embolism, stroke, coma, heart attack, permanent paralysis and , as well as the potential need for eventual revision of the prosthetic. Surgeon: Maryam Burleson Emergency Services Dispatcher: Alex Whyte Anesthesia Type: General and Spinal Operative Notes Findings: Severe right hip OA, very tight femoral bone, hard bone adequate stability, small canal, adequate stability Closure Type: primary Specimen(s): none sent Prosthetic devices, grafts, tissues, transplants, or devices: [employer] R3 52, neutral poly liner, one 6.5 mm screw, standard anthology size 3 stem, Oxinium 36 x -3 Estimated Blood Loss (mL): 250 Blood products transfused: none Discharge Providers Provider Discharge Date: 12/20/23 Primary care physician: DILEEP Saldaña Consults: 12/19/23 06:00 Consult to Anesthesiology Routine Comment: Consulting Provider: Anesthesiologist Reason for consultation: Regional block for post operative pain control Has provider been notified: No 12/19/23 12:11 Consult to Discharge Planning Routine Comment: Consult to Occupational Therapy Evaluate & Treat Comment: Physician Instructions: Evaluate and treat Consult to Physical Therapy Evaluate & Treat Comment: Physician Instructions: post op TERESA protocol Discharge provider: Shefali Coleman PA-C Summary Hospital Course Discharge Diagnosis: Right hip osteoarthritis, s/p right total hip arthroplasty Hospital Course: Ms Lopez's hospital course was remarkable for sudden onset of sharp pain in her operative thigh when she got out of bed to go to the bathroom on the evening of surgery. Because of the nature and location of the pain, an xray of the femur was ordered to rule out fracture. Imaging was negative for fracture or hardware disruption. She did well w/ PT and was eating and voiding without difficulty. Her pain was well-controlled with oral medication; she was receiving dilaudid in the hospital, and was discharged with hydrocodone d/t severe nausea w/ oxycodone. Exam Vital Signs (past 8 hours): - 12/20/23 08:00 12/20/23 08:00 Temperature 98.2 F Pulse Rate 65 Respiratory Rate 18 Blood Pressure 140/76 Pulse Oximetry 100 Oxygen Delivery Method Room Air Oxygen Flow Rate 0 Oxygen Delivery Method Room Air Oxygen Flow Rate 0 Narrative Exam Narrative: Normal MSK exam on the right. See progress notes. Objective Labs 12/20/23 05:30 Labs: Laboratory Results - last 24 hr 12/20/23 05:30 Hgb 13.0 Hct 39.6 PFSH Medical History (Updated 12/03/23 @ 08:26 by DILEEP Saldaña) On hormone replacement therapy Migraine without aura and without status migrainosus, not intractable History of electroconvulsive therapy Bipolar disorder in partial remission Obstructive sleep apnea Postoperative hypothyroidism History of thyroid cancer Surgical History (Updated 12/20/23 @ 07:20 by Shefali Coleman PA-C) Delivery by section (2004) H/O arthroscopy of right knee (2005) History of ankle surgery (~1989) History of Kan-en-Y gastric bypass (2015) History of thyroidectomy, total (2007) Social History household members: none Smoking Status: Never smoker alcohol intake: current Discharge Assessment & Plan Assessment and Plan Assessment: Right hip osteoarthritis s/p right total hip arthroplasty Plan of Treatment: Discharge home, multimodal pain control can include short-term use of HOLLY-1 inhibitors but NOT NSAIDs d/t h/o gastric bypass; ASA 81mg x 6 weeks for VTE prophylaxis, outpt PT, f/u in office as scheduled. Discharge Plan Discharge Plan Patient Disposition: Home Provider Discharge Comment: NO NSAIDS. Meloxicam ok; do not exceed 15mg/day. Do not take for more than 4 weeks. Discharge orders & Medications Discharge Orders: Discharge (Order); Ordered 12/20/23 Ordered By: Shefali oCleman Prescriptions: New hydrocodone-acetaminophen 5-325 mg Tablet 1 tab PO Q4-6H PRN (Reason: Pain, Moderate (4-6)) Qty: 60 0RF Rx Instructions: May take 1-2 tabs q 4-6 hours. DO NOT EXCEED 3000mg total acetaminophen daily. Continued estradiol 1.25 mg/1.25 gram (0.1 %) gel in packet 1.25 mg transdermal DAILY progesterone micronized 100 mg capsule 200 mg PO DAILY rizatriptan 10 mg tablet See Rx Instructions PO .COMPLEX Qty: 20 3RF Rx Instructions: take 1 tab at onset of headache; if no relief may repeat 1 tab after at least 2 hrs; max = 3 tabs/24 hr PO epinephrine 0.3 mg/0.3 mL auto-injector 0.3 mg IM ONCE Qty: 2 1RF Rx Instructions: as a single dose; may repeat once levothyroxine [Levoxyl] 150 mcg tablet 150 mcg PO DAILY Rx Instructions: patient states can only take brand name, Levoxyl Discontinued ibuprofen 800 mg tablet 800 mg PO 3XD Follow up/Referrals: Tomer Anderson PA-C [[facility]] - 01/01/24 1:30 pm (appt:12/31 @ 1:30 with Kit JORGE @ [facility] [place] [employer] [address] [facility] please arrive 15 min prior to scheduled appointment time) Eliot Dudley ARNP [Primary Care Provider] - Maryam Burleson MD [Physician] - As previously scheduled Diet/Activity/Treatments Diet: Diet as Tolerated Activity: Weightbearing as tolerated. Anterior hip precautions. Cold/Heat Therapy: Ice to hip as needed for pain. Skin/Wound/Dressing Care Report to your healthcare provider any signs of infection, such as:: chills, fever, night sweats, unusual drainage and unusual redness Dressing: May shower. Leave dressing in place until follow up in office. No bathing or otherwise soaking incision. Call the office if the dressing becomes saturated inside. Visit Report/Discharge Packet Instructions: DI for Hip Replacement, DI for Constipation, How to Prevent Falls, DI for Prescription Opioid Use Stand Alone Forms: Patient Portal/API, Surgery Discharge Discharge Data Primary Care Provider: Eliot Dudley Attending Provider: Maryam Burleson
== END 2023-12-20 13:30 | disposition home or self-care (01) ==
LOC: OR 05:59 → AC 06:00
PROVIDERS: PCP Registered Nurse Diabetes Educator; Referring Provider Orthopaedic Surgery; Visit Provider Orthopaedic Surgery
PROC: (CPT 27130; principal; 2023-12-19 07:45)
DX: M16.11 Unilateral primary osteoarthritis, right hip (principal); M25.751 Osteophyte, right hip
CPT/HCPCS: 27130; 36415; 73502; 73552; 76000; 85014; 85018; 97116; 97162; 97165; 97530; 97535; C1776; C9290; J0171; J1100; J1171; J2250; J2405; J2704; J2765; J3010

== ENCOUNTER → 2024-04-25 16:10 | Outpatient (CLI) | payer OTHER, SELFPAY ==
[2023-12-19 18:18] VITALS: BMI 26.6
[2024-04-25 17:21] LABS: Vitamin D 25 Hydroxy (D3) 62.8 ng/mL (30.0-100.0)
[2024-04-25 17:47] LABS: Free T4, Direct Thyroxine 0.71 ng/dL (0.78-2.19)
[2024-04-25 18:01] LABS: Thyroid Stimulating Hormone 8.64 uIU/mL (0.47-4.68)
[2024-04-27 20:38] LABS: Thyroglobulin Antibodies < 1.0 IU/mL (0.0-0.9)
== END ==
PROVIDERS: PCP Registered Nurse Diabetes Educator; Referring Provider Internal Medicine Endocrinology, Diabetes & Metabolism; Visit Provider Internal Medicine Endocrinology, Diabetes & Metabolism
DX: E89.0 Postprocedural hypothyroidism (principal); C73 Malignant neoplasm of thyroid gland; E55.9 Vitamin D deficiency, unspecified
CPT/HCPCS: 36415; 82306; 84432; 84439; 84443; 86800

== ENCOUNTER → 2024-06-27 15:25 | Outpatient (CLI) | payer OTHER, SELFPAY ==
[2023-12-19 18:18] VITALS: BMI 26.6
[2024-06-27 16:50] LABS: TSH w/ Reflex to FT4 3.06 uIU/mL (0.47-4.68)
== END ==
PROVIDERS: Internal Medicine Endocrinology, Diabetes & Metabolism; PCP Registered Nurse Diabetes Educator; Referring Provider Registered Nurse Diabetes Educator; Visit Provider Registered Nurse Diabetes Educator
DX: C73 Malignant neoplasm of thyroid gland (principal); E89.0 Postprocedural hypothyroidism
CPT/HCPCS: 36415; 84432; 84443; 86800

== ENCOUNTER → 2024-11-04 13:14 | Outpatient (CLI) | payer OTHER, SELFPAY ==
[2023-12-19 18:18] VITALS: BMI 26.6
--- NOTE | 2024-11-04 13:16 | DI.RAD.S_ITS ---
PROCEDURE: XR WRIST RT MIN 3V INDICATIONS: Pain cont'd after injury 10/15/24 TECHNIQUE: 4 views of the wrist were acquired. COMPARISON: None. FINDINGS: Bones: No fractures or dislocations. No suspicious bony lesions. Soft tissues: No suspicious soft tissue calcifications. IMPRESSION: No acute bony abnormality. Dictated by: Ani Gonsalez M.D. on 11/04/2024 at 16:05 Approved by: Ani Gonsalez M.D. on 11/04/2024 at 16:10
== END ==
PROVIDERS: PCP Registered Nurse Diabetes Educator; Referring Provider Registered Nurse Diabetes Educator; Visit Provider Registered Nurse Diabetes Educator
DX: M25.531 Pain in right wrist (principal); M25.431 Effusion, right wrist
CPT/HCPCS: 73110

== ENCOUNTER 2024-11-07 13:04 | Observation (INO) | payer OTHER, SELFPAY ==
[2023-12-19 18:18] VITALS: BMI 26.6
[2024-11-07] VITALS (20 sets, daily range): BP systolic 142–182; BP diastolic 70–97; PULSE 60–77; RESP 18–20; TEMP 36–36.8; O2SAT 95–100; BMI 28.8; BMI 30.8
--- NOTE | 2024-11-07 13:19 | DI.RAD.S_ITS ---
PROCEDURE: XR ELBOW LT MIN 3V INDICATIONS: dog bite TECHNIQUE: 3 views of the elbow were acquired. COMPARISON: None. FINDINGS: Bones: No fractures or dislocations. 7No suspicious bony lesions. Enthesophyte noted on olecranon process. Soft tissues: No elbow joint effusion. No suspicious soft tissue calcifications. Soft tissue swelling with subcutaneous emphysema present. No radiopaque foreign bodies. IMPRESSION: No acute bony abnormality or significant joint effusion. Subcutaneous emphysema consistent with an open wound. No unexpected radiopaque foreign bodies. Dictated by: Camelia Mnedes M.D. on 11/07/2024 at 13:59 Approved by: Camelia Mendes M.D. on 11/07/2024 at 14:05
--- NOTE | 2024-11-07 13:19 | DI.RAD.S_ITS ---
PROCEDURE: XR HUMERUS LT 2V INDICATIONS: dog bite TECHNIQUE: 2 views of the humerus were acquired. COMPARISON: None. FINDINGS: Bones: No fractures or dislocations. No suspicious bony lesions. Probable bone island in the humerus head. Soft tissues: No suspicious soft tissue calcifications. Subcutaneous emphysema consistent with an open wound. No unexpected radiopaque foreign bodies noted. IMPRESSION: Soft tissue emphysema. No acute fracture or radiopaque foreign bodies. Dictated by: Camelia Mendes M.D. on 11/07/2024 at 14:07 Approved by: Camelia Mendes M.D. on 11/07/2024 at 14:08
--- NOTE | 2024-11-07 13:41 | ED_ITS ---
HPI - Animal Bite General Chief Complaint: Animal Bite Stated Complaint: DOG BITE Time Seen by Provider: 11/07/24 13:14 Source: patient Mode of arrival: Ambulatory History of Present Illness HPI narrative: 59-year-old female presents with dog bite to left arm. 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 They were out for a walk in the dog became suddenly agitated, latched out on and bit her left arm. She says last tetanus was updated 1 month ago after had a trip and fall and an abrasion on her head while in [place]. Denies any chronic medical conditions aside from hypothyroid Related Data Home Medications ?Medication ?Instructions ?Recorded ?Confirmed estradiol 1.25 mg/1.25 gram (0.1 1.25 mg transdermal D AILY 11/02/22 11/07/24 %) transdermal gel packet progesterone micronized 100 mg 200 mg PO DAILY 3 11/07/24 capsule levothyroxine 75 mcg tablet 75 mcg PO DAILY 11/07/24 1 (Levoxyl) levothyroxine 88 mcg tablet 88 mcg PO DAILY 11/07/24 1 (Levoxyl) Previous Rx's ?Medication ?Instructions ?Recorded rizatriptan 10 mg tablet See Rx Instructions PO .COMP RACHNA 11/02/22 #20 tabs epinephrine 0.3 mg/0.3 mL 0.3 mg (0.3 mL) IM ONCE #2 e a 11/30/22 injection, auto-injector doxycycline hyclate 100 mg capsule 100 mg PO BID #14 c aps 11/09/24 hydrocodone 10 mg-acetaminophen 1 tab PO Q8H PRN pain #14 tabs 11/09/24 325 mg tablet metronidazole 500 mg tablet 500 mg PO Q8H #20 tabs 05/31 Allergies Allergy/AdvReac Type Severity Reaction Status Date / Time cephalexin Allergy Severe Rash Verified 11/07/24 13:19 Cephalosporins Allergy Severe Rash Verified 11/07/24 13:19 iodine Allergy Severe Rash Verified 11/07/24 13:19 morphine Allergy Severe Rash Verified 11/07/24 13:19 levothyroxine Allergy Mild face Verified 11/07/24 13:19 swelling aripiprazole Allergy Unknown swelling Verified 11/07/24 13:19 (unknown location) bee venom protein (honey bee) Allergy Verified 11/07/24 13:19 Penicillins Allergy Rash Verified 11/07/24 13:19 levofloxacin AdvReac Mild ITCHING Verified 11/08/24 04:37 codeine AdvReac Unknown Nausea Verified 11/07/24 13:19 Review of Systems Review of Systems Narrative: Pertinent ROS obtained and negative except as stated in HPI Patient History Medical History On hormone replacement therapy Migraine without aura and without status migrainosus, not intractable History of electroconvulsive therapy Bipolar disorder in partial remission Obstructive sleep apnea Postoperative hypothyroidism History of thyroid cancer Surgical History Delivery by section (2004) H/O arthroscopy of right knee (2005) History of ankle surgery (~1989) History of Chandu-en-Y gastric bypass (2015) History of thyroidectomy, total (2007) Social History household members: none Smoking Status: Former smoker alcohol intake: current Smoking Status: Never smoker alcohol intake frequency: a few times a week Exam Initial Vital Signs Initial Vital Signs: Vital Signs Temperature 98.3 F 11/07/24 13:08 Pulse Rate 64 11/07/24 13:08 Respiratory Rate 18 11/07/24 13:08 Blood Pressure 177/92 H 11/07/24 13:08 Pulse Oximetry 100 11/07/24 13:08 Oxygen Delivery Method Room Air 11/07/24 13:08 Constitutional: 59 yo female resting in bed, left elbow area covered by bloody dressing, + acute distress due to pain Head: NCAT Cardiovascular: normal rate, appears well perfused Pulmonary: normal effort Extremities: LUE - 2+ radial pulse. Sensation intact to light touch MUR distribution of hand and to light touch forearm and arm. Pt able to make a fist/abduct fingers/OK sign/flex and extend at wrist although with increased pain. There is large 5x4 cm soft tissue defect/wound to medial left mid arm with adipose tissue exposed. With closer examination there are at least two separate areas where fascia is violated and bicep muscle tissue is torn. Across posterior elbow there are six puncture wounds noted varying in size 0.5-2cm with adipose tissue protruding. (pictures in nurse note) Skin: warm and dry Neurological: Alert Procedures Laceration Repair Laceration 1: Site: upper extremity Side (If applicable): left Size (cm): 5 Local Anesthetic: bupivacaine 0.5% and with epi Amount of anesthesia used (mL): 20 Skin layer closed with: nylon Skin layer suture size: 5-0 Number of sutures: 8 Technique: simple, interrupted and horizontal mattress Laceration 2: Site: upper extremity (lateral elbow) Size (cm): 2 Local Anesthetic: bupivacaine 0.5% and with epi Amount of anesthesia used (mL): 1 Skin layer closed with: nylon Skin layer suture size: 5-0 Number of sutures: 1 Technique: simple, interrupted Laceration 3: Site: upper extremity (left arm puncture wound) Size (cm): 1 Local Anesthetic: bupivacaine 0.5% and with epi Amount of anesthesia used (mL): 1 Skin layer closed with: nylon Skin layer suture size: 5-0 Number of sutures: 1 Technique: simple, interrupted Course Orders Ordered: Discontinued Medications Acetaminophen (Acetaminophen 325 Mg Tablet) 650 mg PO NOW ONE Stop: 11/07/24 18:05 Last Admin: 11/07/24 18:05 Dose: 650 mg Documented By: RAYMOND Acetaminophen (Acetaminophen 325 Mg Tablet) 1,000 mg PO Q6H PRN PRN Reason: Fever/Mild Pain (1-3) Last Admin: 11/08/24 18:42 Dose: 650 mg Documented By: RUTH ANN Hydrocodone Bitart/Acetaminophen (Hydrocodone/Acet 5/325 Tablet) 1 tab PO NOW ONE Stop: 11/07/24 18:05 Last Admin: 11/07/24 18:09 Dose: 1 tab Documented By: RAYMOND Hydrocodone Bitart/Acetaminophen (Hydrocodone/Acet 5/325 Tablet) 1 tab PO Q6HR PRN PRN Reason: Pain, Moderate (4-6) Hydrocodone Bitart/Acetaminophen (Hydrocodone/Acet 10/325 Tablet) 1 tab PO Q6HR PRN PRN Reason: Pain, Severe (7-10) Last Admin: 11/07/24 23:09 Dose: 1 tab Documented By: NOE Hydrocodone Bitart/Acetaminophen (Hydrocodone/Acet 10/325 Tablet) 1 tab PO Q4H PRN PRN Reason: Pain, Severe (7-10) Last Admin: 11/08/24 09:59 Dose: 1 tab Documented By: RUTH ANN Admin: 11/08/24 06:29 Dose: 1 tab Documented By: Admin: 11/08/24 02:36 Dose: 1 tab Documented By: NOE Hydrocodone Bitart/Acetaminophen (Hydrocodone/Acet 5/325 Tablet) 1 tab PO Q4H PRN PRN Reason: Pain, Moderate (4-6) Last Admin: 11/09/24 09:43 Dose: 1 tab Documented By: Admin: 11/09/24 04:43 Dose: 1 tab Documented By: AM Hydrocodone Bitart/Acetaminophen (Hydrocodone/Acet 10/325 Tablet) 1 tab PO Q3H PRN PRN Reason: Pain, Severe (7-10) Last Admin: 11/09/24 01:38 Dose: 1 tab Documented By: Admin: 11/08/24 20:32 Dose: 1 tab Documented By: Admin: 11/08/24 17:11 Dose: 1 tab Documented By: RUTH ANN Admin: 11/08/24 13:20 Dose: 1 tab Documented By: RUTH ANN Bupivacaine HCl/Epinephrine Bitart (Bupivacaine 0.5% W/ Epi (Pf) 30 Ml Vial) 30 ml INJ INTRA-OP ONE Stop: 11/07/24 15:26 Last Admin: 11/07/24 15:32 Dose: 30 ml Documented By: RAYMODN Diphenhydramine HCl (Diphenhydramine 50 Mg/Ml Vial) 25 mg IV Q4HR PRN PRN Reason: Itching Last Admin: 11/09/24 08:40 Dose: 25 mg Documented By: Admin: 11/09/24 00:54 Dose: 25 mg Documented By: Admin: 11/08/24 19:59 Dose: 25 mg Documented By: Admin: 11/08/24 08:35 Dose: 25 mg Documented By: RUTH ANN Admin: 11/08/24 01:42 Dose: 25 mg Documented By: NOE Hydromorphone HCl (Hydromorphone 1 Mg/Ml Syringe) 1 mg IV NOW ONE Stop: 11/07/24 13:22 Last Admin: 11/07/24 13:28 Dose: 1 mg Documented By: RAYMOND Hydromorphone HCl (Hydromorphone 1 Mg/Ml Syringe) 1 mg IV NOW ONE Stop: 11/07/24 14:00 Last Admin: 11/07/24 14:16 Dose: 1 mg Documented By: RAYMOND Hydromorphone HCl (Hydromorphone 1 Mg/Ml Syringe) 1 mg IV NOW ONE Stop: 11/07/24 15:27 Last Admin: 11/07/24 15:30 Dose: 1 mg Documented By: RAYMOND Hydromorphone HCl (Hydromorphone Hcl 0.5 Mg/0.5 Ml Syringe) 0.5 mg IV NOW ONE Stop: 11/07/24 17:38 Last Admin: 11/07/24 17:46 Dose: 0.5 mg Documented By: RAYMOND Hydromorphone HCl (Hydromorphone 2 Mg Tablet) 2 mg PO Q4HR PRN PRN Reason: Pain, Moderate (4-6) Hydromorphone HCl (Hydromorphone 2 Mg Tablet) 4 mg PO Q4HR PRN PRN Reason: Pain, Severe (7-10) Hydromorphone HCl (Hydromorphone Hcl 0.5 Mg/0.5 Ml Syringe) 0.5 mg IV Q2H PRN PRN Reason: Pain, Severe (7-10) Last Admin: 11/08/24 07:08 Dose: 0.5 mg Documented By: Admin: 11/07/24 21:41 Dose: 0.5 mg Documented By: NOE Hydromorphone HCl (Hydromorphone Hcl 0.5 Mg/0.5 Ml Syringe) 1 mg IV Q2H PRN PRN Reason: Pain, Severe (7-10) Hydroxyzine HCl (Hydroxyzine Hcl 25 Mg Tablet) 25 mg PO Q4H PRN PRN Reason: pruritis Last Admin: 11/08/24 14:45 Dose: 25 mg Documented By: LDV Sodium Chloride (Normal Saline 0.9%) 1,000 mls @ 150 mls/hr IV CONT AKSHAT Last Infusion: 11/07/24 21:30 Dose: Infused Documented By: Admin: 11/07/24 14:36 Dose: 150 mls/hr Documented By: RAYMOND Doxycycline Hyclate 100 mg/ (Sodium Chloride) 100 mls @ 100 mls/hr IV NOW ONE Stop: 11/07/24 14:58 Last Infusion: 11/07/24 17:05 Dose: Infused Documented By: Admin: 11/07/24 15:09 Dose: 100 mls/hr Documented By: RAYMOND Metronidazole (Flagyl) 500 mg in 100 mls @ 100 mls/hr IV NOW ONE Stop: 11/07/24 15:56 Last Infusion: 11/07/24 17:31 Dose: Infused Documented By: Admin: 11/07/24 16:26 Dose: 100 mls/hr Documented By: YUNIEL Acetaminophen (Ofirmev) 1,000 mg in 100 mls @ 400 mls/hr IV NOW ONE Stop: 11/07/24 18:16 Last Admin: 11/08/24 04:07 Dose: Not Given Documented By: Clindamycin Phosphate (Cleocin) 600 mg in 50 mls @ 50 mls/hr IV Q8H [facility] Last Infusion: 11/09/24 06:05 Dose: Infused Documented By: Admin: 11/09/24 04:42 Dose: 50 mls/hr Documented By: Infusion: 11/08/24 23:20 Dose: Infused Documented By: Admin: 11/08/24 22:02 Dose: 50 mls/hr Documented By: Infusion: 11/08/24 14:56 Dose: Infused Documented By: Admin: 11/08/24 13:20 Dose: 50 mls/hr Documented By: Infusion: 11/08/24 07:00 Dose: Infused Documented By: Admin: 11/08/24 05:53 Dose: 50 mls/hr Documented By: Infusion: 11/08/24 00:04 Dose: Infused Documented By: Admin: 11/07/24 22:39 Dose: 50 mls/hr Documented By: MEMO Levofloxacin (Levaquin) 500 mg in 100 mls @ 100 mls/hr IV Q24H [facility] Last Infusion: 11/08/24 03:58 Dose: Infused Documented By: Infusion: 11/08/24 00:55 Dose: 0 mls/hr Documented By: Admin: 11/07/24 23:51 Dose: 100 mls/hr Documented By: Doxycycline Hyclate 100 mg/ (Sodium Chloride) 100 mls @ 100 mls/hr IV Q12H [facility] Last Infusion: 11/09/24 09:49 Dose: Infused Documented By: Admin: 11/09/24 08:42 Dose: 100 mls/hr Documented By: Infusion: 11/08/24 22:00 Dose: Infused Documented By: Admin: 11/08/24 20:33 Dose: 100 mls/hr Documented By: Infusion: 11/08/24 10:05 Dose: Infused Documented By: RUTH ANN Admin: 11/08/24 08:30 Dose: 100 mls/hr Documented By: RUTH ANN Ketorolac Tromethamine (Ketorolac 30 Mg/Ml Vial) 15 mg IV NOW ONE Stop: 11/07/24 14:00 Last Admin: 11/07/24 14:04 Dose: Not Given Documented By: RAYMOND Levothyroxine Sodium (Levothyroxine 75 Mcg Tablet) 150 mcg PO 0600 [facility] Levothyroxine Sodium (Levothyroxine 88 Mcg Tablet) 88 mcg PO QACBREAK [facility] Last Admin: 11/08/24 04:34 Dose: Not Given Documented By: NOE Levothyroxine Sodium (Levothyroxine 75 Mcg Tablet) 75 mcg PO QACBREAK [facility] Last Admin: 11/08/24 04:35 Dose: Not Given Documented By: NOE Lidocaine HCl (Lidocaine 1% 30 Ml) 30 ml INJ INTRA-OP ONE Stop: 11/07/24 15:08 Last Admin: 11/07/24 18:05 Dose: Not Given Documented By: RAYMOND Melatonin (Melatonin 3 Mg Tablet) 6 mg PO BEDTIME PRN PRN Reason: insomnia Last Admin: 11/08/24 00:35 Dose: 6 mg Documented By: NOE Naloxone HCl (Naloxone 0.4 Mg/Ml Vial) 0.2 mg IV Q2MIN PRN PRN Reason: Opiate Reversal Non-Formulary Medication (Estradiol) 1.25 mg TOP DAILY [facility] Last Admin: 11/09/24 09:38 Dose: Not Given Documented By: Admin: 11/08/24 10:03 Dose: Not Given Documented By: RUTH ANN Nf - Levoxyl 88 Mcg 88 each PO 0600 [facility] Last Admin: 11/09/24 08:39 Dose: 88 each Documented By: Nf - Levoxyl 75 Mcg 75 each PO 0600 [facility] Last Admin: 11/09/24 08:39 Dose: 75 each Documented By: Ondansetron HCl (Ondansetron 4 Mg/2 Ml Inj) 4 mg IV NOW ONE Stop: 11/07/24 15:12 Last Admin: 11/07/24 15:14 Dose: 4 mg Documented By: RAYMOND Ondansetron HCl (Ondansetron 4 Mg/2 Ml Inj) 4 mg IV NOW ONE Stop: 11/07/24 15:12 Last Admin: 11/07/24 22:58 Dose: Not Given Documented By: MEMO Ondansetron HCl (Ondansetron 4 Mg/2 Ml Inj) 4 mg IV NOW ONE Stop: 11/07/24 17:03 Last Admin: 11/07/24 17:04 Dose: 4 mg Documented By: RAYMOND Ondansetron HCl (Ondansetron 4 Mg/2 Ml Inj) 4 mg IV Q4HR PRN PRN Reason: nausea Last Admin: 11/08/24 07:08 Dose: 4 mg Documented By: Admin: 11/07/24 21:50 Dose: 4 mg Documented By: SH Progesterone (Progesterone, Micronized 100 Mg Capsule) 200 mg PO DAILY [facility] Last Admin: 11/08/24 10:03 Dose: Not Given Documented By: LDV Progesterone (Progesterone, Micronized 100 Mg Capsule) 200 mg PO BEDTIME [facility] Last Admin: 11/08/24 22:03 Dose: 200 mg Documented By: AM Sumatriptan Succinate (Sumatriptan 25 Mg Tablet) 100 mg PO PRN PRN PRN Reason: Headache Last Admin: 11/09/24 04:43 Dose: 100 mg Documented By: AM Vital Signs Vital signs: Vital Signs - 8 hr 11/07/24 13:08 11/07/24 13:22 11/07/24 13:30 Temperature 98.3 F Pulse Rate 64 68 71 Respiratory Rate 18 Blood Pressure 177/92 H Pulse Oximetry 100 100 100 Oxygen Delivery Method Room Air Oxygen Flow Rate 11/07/24 14:00 11/07/24 14:19 11/07/24 14:19 Temperature Pulse Rate 66 67 Respiratory Rate Blood Pressure 175/89 H Pulse Oximetry 100 99 Oxygen Delivery Method Oxygen Flow Rate 11/07/24 14:30 11/07/24 14:30 11/07/24 15:00 Temperature Pulse Rate 69 74 Respiratory Rate Blood Pressure 162/80 H Pulse Oximetry 99 100 Oxygen Delivery Method Oxygen Flow Rate 11/07/24 15:01 11/07/24 15:01 11/07/24 15:30 Temperature Pulse Rate 74 Respiratory Rate Blood Pressure 182/90 H 178/97 H Pulse Oximetry 100 Oxygen Delivery Method Oxygen Flow Rate 11/07/24 15:30 11/07/24 15:55 11/07/24 16:00 Temperature Pulse Rate 74 Respiratory Rate Blood Pressure 153/81 H Pulse Oximetry 98 99 Oxygen Delivery Method Nasal Cannula Oxygen Flow Rate 1 11/07/24 16:00 11/07/24 16:30 11/07/24 16:30 Temperature Pulse Rate 77 74 Respiratory Rate Blood Pressure 154/73 H Pulse Oximetry 100 100 Oxygen Delivery Method Oxygen Flow Rate 11/07/24 17:00 11/07/24 17:00 11/07/24 17:30 Temperature Pulse Rate 72 Respiratory Rate Blood Pressure 147/82 H 161/74 H Pulse Oximetry 100 Oxygen Delivery Method Oxygen Flow Rate 11/07/24 17:30 11/07/24 18:00 11/07/24 18:00 Temperature Pulse Rate 72 71 Respiratory Rate Blood Pressure 149/87 H Pulse Oximetry 100 95 Oxygen Delivery Method Oxygen Flow Rate MDM - Animal Bite Lab Data 11/08/24 04:10 11/08/24 04:10 [facility] Narrative Medical decision making narrative: In brief, this is a 59-year-old female with history of hypothyroidism presenting to the emergency department with dog bite wounds to the left upper extremity. No apparent neurovascular injury on arrival. Wound as described above is quite extensive and does appear to violate the biceps mm Initial treatment plan includes: X-ray to exclude fracture although clinically I suspect this is more soft tissue injury, basic laboratories, discussed case with orthopedics colleagues regarding possible OR for washout given probable heavy contamination. Due to PCN/cephalosporin allergy I have ordered doxy/flagyl IV Discussed case with Dr. Kendrick who rec's -primary closure of large defect and dress puncture wounds/avoid closure of puncture wounds -Prophylactic antibiotics -will see closely in follow up in the office Larger wounds repaired per procedure note. Pt understands balancing cosmesis with desire for healing via secondary intention in this clinical scenario. On reassessment at 1930 after laceration repair patient has received in total 3.5-4 mg of Dilaudid, Tylenol, oral hydrocodone (avoiding NSAID due to hx of chandu-en-y). She is still endorsing waxing and waning discomfort, pain management has been difficult in this patient. She has some numbness in her left pinky and less so other digits with good strength and brisk capillary refill. Swelling of the elbow area has stabilized with elevation and ice. Discussed case again with orthopedist who would support admission for pain management and asked to follow along in consultation regarding extent of wound. Radiologist has not yet interpreted x-rays (negative per my interp). I have asked staff again to address this Hospitalist accepts patient for further cares to include IV antibiotics, pain management and orthopedic surgery consultation. Patient agrees with admission. Discharge Plan Departure Patient Disposition: Admitted as Observation Clinical Impression: Dog bite Admit Date/Time: 11/07/24 19:47 Admit Provider: Andriy Zhang
[2024-11-07] MEDS: SODIUM CHLORIDE 0.9% 1,000 ML 150 ML IV (14:36)
[2024-11-07] MEDS: DOXYCYCLINE 100 MG in SODIUM CHLORIDE 0.9% 100 ML IV (15:09)
[2024-11-07] MEDS: ONDANSETRON 4 MG/2 ML INJ IV ×3 (15:14→21:50)
[2024-11-07] MEDS: metroNIDAZOLE 500 MG/100 ML PIGGYBACK 100 MG IV (16:26)
--- NOTE | 2024-11-07 17:53 | PC.NURSE ---
Patient complains of arm pain. Pulse is strong, regular. Patient can move fingers. She states a decrease in sensation in her finger tips.
[2024-11-07] MEDS: ACETAMINOPHEN 325 MG TABLET 650 MG PO (18:05)
[2024-11-07] MEDS: CLINDAMYCIN 600 MG/50 ML PIGGYBACK 50 MG IV (22:39)
[2024-11-07] MEDS: levoFLOXacin 500 MG/100 ML PIGGYBACK 100 MG IV (23:51)
[2024-11-08] VITALS: BP 120/68; PULSE 73; RESP 19; TEMP 36.4; O2SAT 100
[2024-11-08] MEDS: MELATONIN 3 MG TABLET 6 MG PO (00:35)
--- NOTE | 2024-11-08 01:11 | PM.HP.1 ---
History of Present Illness History of Present Illness Date Patient Seen: 11/07/24 Time Patient Seen: 21:30 Chief complaint: DOG BITE Narrative: 59 y/o with PMH of hypothyroidism, bipolar disorder in remission, NATHALY, migraine, hypothyroidism, Rt knee OA, presented to ED after her left upper arm was bitten by a dog. 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 From the ED: There is large 5x4 cm soft tissue defect/wound to medial left mid arm with adipose tissue exposed. With closer examination there are at least two separate areas where fascia is violated and muscle tissue is torn. Across posterior elbow there are six puncture wounds noted varying in size 0.5-2cm with adipose tissue protruding. Discussed case with Dr. Kendrick who rec's -primary closure of large defect and dress puncture wounds -will see closely in follow up On admission left upper arm is covered with a dressing. Required intensive management while in the ED. Admitted to medicine for IV abx, pain management, with orthopedic surgery evaluation [facility] Medical History On hormone replacement therapy Migraine without aura and without status migrainosus, not intractable History of electroconvulsive therapy Bipolar disorder in partial remission Obstructive sleep apnea Postoperative hypothyroidism History of thyroid cancer Surgical History Delivery by section (2004) H/O arthroscopy of right knee (2005) History of ankle surgery (~1989) History of Kan-en-Y gastric bypass (2015) History of thyroidectomy, total (2007) Social History household members: none Smoking Status: Former smoker alcohol intake: current Meds Home Medications and Allergies Home Medications ?Medication ?Instructions ?Recorded ?Confirmed ?Type estradiol 1.25 mg/1.25 gram (0.1 1.25 mg transdermal DAILY 11/02/22 11/07/24 History %) transdermal gel packet progesterone micronized 100 mg 200 mg PO DAILY 11/02/22 11/07/24 History capsule rizatriptan 10 mg tablet See Rx Instructions PO .COMPLEX 11/02/22 11/07/24 Rx #20 tabs epinephrine 0.3 mg/0.3 mL 0.3 mg (0.3 mL) IM ONCE #2 ea 11/30/22 11/07/24 Rx injection, auto-injector levothyroxine 75 mcg tablet 75 mcg PO DAILY 11/07/24 11/07/24 History (Levoxyl) levothyroxine 88 mcg tablet 88 mcg PO DAILY 11/07/24 11/07/24 History (Levoxyl) Allergies Allergy/AdvReac Type Severity Reaction Status Date / Time cephalexin Allergy Severe Rash Verified 11/07/24 13:19 Cephalosporins Allergy Severe Rash Verified 11/07/24 13:19 iodine Allergy Severe Rash Verified 11/07/24 13:19 morphine Allergy Severe Rash Verified 11/07/24 13:19 levothyroxine Allergy Mild face Verified 11/07/24 13:19 swelling aripiprazole Allergy Unknown swelling Verified 11/07/24 13:19 (unknown location) bee venom protein (honey bee) Allergy Verified 11/07/24 13:19 Penicillins Allergy Rash Verified 11/07/24 13:19 codeine AdvReac Unknown Nausea Verified 11/07/24 13:19 Review of Systems Review of Systems Narrative: General - w/o fever, chills or sweats EXT - left upper arm pain CVS - w/o chest pain RS - w/o shortness of breath UG - w/o dysuria GI - w/o changes of bowel habits Neuro - had several syncopal episodes lately and one concussion Psych - mood appropriate Exam Vital Signs (past 8 hours): - 11/07/24 17:30 11/07/24 17:30 11/07/24 18:00 Temperature Pulse Rate 72 71 Respiratory Rate Blood Pressure 161/74 H Pulse Oximetry 100 95 Oxygen Flow Rate 11/07/24 18:00 11/07/24 18:30 11/07/24 18:30 Temperature Pulse Rate 67 Respiratory Rate Blood Pressure 149/87 H 165/80 H Pulse Oximetry 100 Oxygen Flow Rate 11/07/24 19:00 11/07/24 19:00 11/07/24 19:30 Temperature Pulse Rate 60 Respiratory Rate Blood Pressure 147/70 H 154/70 H Pulse Oximetry 100 Oxygen Flow Rate 11/07/24 19:30 11/07/24 19:42 11/07/24 19:42 Temperature Pulse Rate 66 73 Respiratory Rate Blood Pressure 142/71 H Pulse Oximetry 100 100 Oxygen Flow Rate 11/07/24 20:36 11/08/24 00:00 Temperature 96.8 F L 97.6 F Pulse Rate 69 73 Respiratory Rate 20 19 Blood Pressure 172/83 H 120/68 Pulse Oximetry 100 100 Oxygen Flow Rate 0 0 Oxygen Delivery Method Nasal Cannula Oxygen Flow Rate 0 Narrative Exam Narrative: General - in mild distress, due to left arm pain EXT - Lt arm dressed after primary closure of large bite wound with exposed muscle and fascvia CVS - RRR RS - normal respiratory effort Neuro - w/o deficits, lucid, flat mood and affect Assessment & Plan Assessment and plan (1) Dog bite: Status: Acute (2) Postoperative hypothyroidism: Problem details: In endocrinology note from May 19, 2023: TSH suppression is not necessary. Goal TSH in normal range. Status: Acute (3) History of thyroidectomy, total: Status: Acute (4) History of thyroid cancer: Status: Acute (5) Bipolar disorder in partial remission: Qualifiers: Most recent bipolar episode type: mixed Qualified Code(s): F31.77 - Bipolar disorder, in partial remission, most recent episode mixed Status: Acute (6) Obstructive sleep apnea: Status: Acute (7) Migraine without aura and without status migrainosus, not intractable: Status: Acute Assessment & Plan narrative: Dog bite - multiple allergies - penicillins, cephalospsporins, fluoroquinolones - clindamycin and doxycycline for now - elevate arm - surgical evaluation for debridement - pain management - up to date with tetanus immunization,dog vaccinated Hx of thyroidectomy for carcinoma / postop hypothyroidism - levothyuroxine 75 + 88 mcg daily NATHALY - CPAP Migraine - prn sumatriptan Bipolar disorder in partial remission - w/o medications DVT prophylaxis - SCDs Patient consented to telemedicine, two-way, audio-visual encounter with RN assisting with exam. Patient located at [facility], provider located in [place]. Time-Based Coding :: [TOTAL MINUTES] spent with patient and on the chart (including review of chart, obtaining history, exam, reviewing outside data, placing orders, documenting exam and treatment plan, and counseling patient) on [DATE]. Quality VTE Deep Vein Thrombosis/Pulmonary Embolism Present on Admission: No
[2024-11-08] MEDS: diphenhydrAMINE 50 MG/ML VIAL 25 MG IV ×3 (01:42→19:59)
[2024-11-08 04:00] VITALS: BP 100/71; PULSE 71; RESP 18; TEMP 36.6; O2SAT 99
[2024-11-08 04:44] LABS: Add Manual Diff / Slide Review NO; Hematocrit 35.6 % (36-46); Hemoglobin 12.0 g/dL (12.0-16.0); Lymphocytes Absolute Auto 1300 /uL (1100-4500); Mean Corpuscular HGB Conc 33.6 % (30-36); Mean Corpuscular Hemoglobin 29.3 PG (26-34); Mean Corpuscular Volume 87.0 fL (80-100); Platelet Count 252 X10^3/uL (150-400)
[2024-11-08 05:11] LABS: Blood Urea Nitrogen 12 mg/dL (7-17); Calcium 8.9 mg/dL (8.4-10.2); Carbon Dioxide 23 mmol/L (22-32); Chloride 104 mmol/L (98-107); Estimated Glomerular Filt Rate > 60 mL/min (>60); Glucose 114 mg/dL (70-99); HEMOLYSIS 27 (0-50); Potassium 4.0 mmol/L (3.4-5.1); Sodium 134 mmol/L (137-145)
--- NOTE | 2024-11-08 05:39 | PC.NURSE ---
Addendum entered by Agatha Dorsey RN 11/08/24 05:46: Dressing saturated with darcy blood, reinforced with ABD pads and coban. Original Note: Patient reported itching after levofloxacin was started, medication stopped. Dr. Crespo changed order to doxycycline and ordered IV benadryl. Levofloxacin added to allergy list.
[2024-11-08] MEDS: CLINDAMYCIN 600 MG/50 ML PIGGYBACK 50 MG IV ×3 (05:53→22:02)
[2024-11-08] MEDS: ONDANSETRON 4 MG/2 ML INJ IV (07:08)
--- NOTE | 2024-11-08 07:30 | P.PN_ITS ---
Subjective Subjective Interval history: Summary: 59 y/o with PMH of hypothyroidism, bipolar disorder in remission, NATHALY, migraine, hypothyroidism, Rt knee OA, presented to ED after her left upper arm was bitten by a dog. 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 From the ED: There is large 5x4 cm soft tissue defect/wound to medial left mid arm with adipose tissue exposed. With closer examination there are at least two separate areas where fascia is violated and muscle tissue is torn. Across posterior elbow there are six puncture wounds noted varying in size 0.5-2cm with adipose tissue protruding. Discussed case with Dr. Kendrick who rec's -primary closure of large defect and dress puncture wounds -will see closely in follow up On admission left upper arm is covered with a dressing. Required intensive management while in the ED. Admitted to medicine for IV abx, pain management, with orthopedic surgery evaluation S: Left arm is painful and mildly swollen. This is mostly on the bottom aspect of the arm. The sutures all appear unremarkable there was no spontaneous drainage. Her pain is minimally controlled with 0.5 of Dilaudid IV. O: NAD, alert and oriented. Fluent speech. Lungs are clear, normal rate and effort. Heart is regular, no murmur gallop or rub. Abdomen is soft, non distended. Extremities are free of edema. Left arm is mildly swollen with minimal bruising. There was large laceration that is closed and a smaller punctate laceration that is got 1 suture. There was no discharge from either. A/P: 1. Dog bite with soft tissue infection, left upper arm. On clindamycin, doxycycline, and metronidazole due to penicillin and cephalosporin allergies. 2. Hypothyroidism 3. History of thyroid cancer with thyroidectomy. 4. Obstructive sleep apnea. 5. Bipolar. 6. Migraine headache. PLAN: -continue IV antibiotics and elevation of extremity. -orthopedic consultation pending. -keeping other day for IV antibiotics and for pain medication. GALA: 11/09 Exam Vital Signs (past 8 hours): - 11/08/24 00:00 Temperature 97.6 F Pulse Rate 73 Respiratory Rate 19 Blood Pressure 120/68 Pulse Oximetry 100 Oxygen Flow Rate 0 Oxygen Delivery Method Nasal Cannula Oxygen Flow Rate 0 Objective Labs 11/08/24 04:10 11/08/24 04:10 Labs: Laboratory Results - last 24 hr 11/08/24 04:10 WBC 10.3 RBC 4.09 Hgb 12.0 Hct 35.6 L MCV 87.0 MCH 29.3 MCHC 33.6 RDW 14.3 Plt Count 252 Neut % (Auto) 79.4 H Lymph % (Auto) 12.9 L [place] % (Auto) 7.1 Eos % (Auto) 0.0 L Baso % (Auto) 0.6 Neut # (Auto) 8100 H Lymph # (Auto) 1300 [place] # (Auto) 700 Eos # (Auto) 0 Baso # (Auto) 100 Sodium 134 L Potassium 4.0 Chloride 104 Carbon Dioxide 23 BUN 12 Creatinine 0.62 Estimated GFR > 60 BUN/Creatinine Ratio 19.4 Glucose 114 H Calcium 8.9 PFSH Medical History On hormone replacement therapy Migraine without aura and without status migrainosus, not intractable History of electroconvulsive therapy Bipolar disorder in partial remission Obstructive sleep apnea Postoperative hypothyroidism History of thyroid cancer Surgical History Delivery by section (2004) H/O arthroscopy of right knee (2005) History of ankle surgery (~1989) History of Kan-en-Y gastric bypass (2015) History of thyroidectomy, total (2007) Social History household members: none Smoking Status: Former smoker alcohol intake: current Assessment & Plan Time-Based Coding :: [TOTAL MINUTES] spent with patient and on the chart (including review of chart, obtaining history, exam, reviewing outside data, placing orders, documenting exam and treatment plan, and counseling patient) on [DATE]. Quality VTE Deep Vein Thrombosis/Pulmonary Embolism Present on Admission: No
[2024-11-08] MEDS: DOXYCYCLINE 100 MG in SODIUM CHLORIDE 0.9% 100 ML IV ×2 (08:30→20:33)
[2024-11-08 09:44] VITALS: BP 134/71; PULSE 74; RESP 15; TEMP 36.1; O2SAT 100
[2024-11-08 14:01] VITALS: BP 130/72; PULSE 78; RESP 14; TEMP 36.2; O2SAT 99
--- NOTE | 2024-11-08 15:03 | P.CONS_ITS ---
History of Present Illness Consult details Chief complaint: DOG BITE Narrative: CHIEF COMPLAINT - Dog bite to the left arm HISTORY OF PRESENT ILLNESS The patient, Miss Lopez, was bitten by a [place] Malinois yesterday. The injury was not an aggressive bite but the dog got startled. The bite was severe enough to cause two lacerations on the left upper extremity, with one over the ulnar aspect and another on the radial aspect of the arm. The injury is worsened by any movement and partially alleviated by rest. It has been present since the time of injury and does not radiate. The patient reports numbness in the pinky finger but can wiggle her fingers and perform various movements indicating some nerve function is intact. PERTINENT PAST MEDICAL HISTORY - Right hip replacement last year by Dr. Burleson SOCIAL HISTORY - Lives in [place] PHYSICAL EXAM - Constitutional: The patient is mentating appropriately, conversant, and not in acute distress. - Focused examination of the left upper extremity: Two lacerations approximated, one on the ulnar aspect and the other on the radial aspect extending posteriorly. Presence of puncture wounds piercing the subcutaneous tissue. Larger laceration medially and ulnarly, sewn closed. Intact sensory function in median, ulnar, and radial nerve distributions. Paresthesias noted on the ulnar aspect of the fifth digit. Palpable radial and ulnar pulses. Intact flexion and extension actively through the elbow. ASSESSMENT 59 year old female with a dog bite to the left arm, status post I&D and closure in the ED PLAN - Monitor for signs of infection. If infection occurs or healing does not progress, surgical intervention may be considered. - Continue antibiotics prophylactically to prevent infection due to the nature of the injury and the patient's history of hip replacement. - Regular follow-up appointments to monitor the healing process and ensure no development of infection. First of these should be next week Meds Home Medications and Allergies Home Medications ?Medication ?Instructions ?Recorded ?Confirmed ?Type estradiol 1.25 mg/1.25 gram (0.1 1.25 mg transdermal D AILY 11/02/22 11/07/24 History %) transdermal gel packet progesterone micronized 100 mg 200 mg PO DAILY 11/02/2 3 11/07/24 History capsule rizatriptan 10 mg tablet See Rx Instructions PO .COMP RACHNA 11/02/22 11/07/24 Rx #20 tabs epinephrine 0.3 mg/0.3 mL 0.3 mg (0.3 mL) IM ONCE #2 e a 11/30/22 11/07/24 Rx injection, auto-injector levothyroxine 75 mcg tablet 75 mcg PO DAILY 11/07/24 1 History (Levoxyl) levothyroxine 88 mcg tablet 88 mcg PO DAILY 11/07/24 1 History (Levoxyl) Allergies Allergy/AdvReac Type Severity Reaction Status Date / Time cephalexin Allergy Severe Rash Verified 11/07/24 13:19 Cephalosporins Allergy Severe Rash Verified 11/07/24 13:19 iodine Allergy Severe Rash Verified 11/07/24 13:19 morphine Allergy Severe Rash Verified 11/07/24 13:19 levothyroxine Allergy Mild face Verified 11/07/24 13:19 swelling aripiprazole Allergy Unknown swelling Verified 11/07/24 13:19 (unknown location) bee venom protein (honey bee) Allergy Verified 11/07/24 13:19 Penicillins Allergy Rash Verified 11/07/24 13:19 levofloxacin AdvReac Mild ITCHING Verified 11/08/24 04:37 codeine AdvReac Unknown Nausea Verified 11/07/24 13:19 Exam Vital Signs (past 8 hours): - 11/08/24 09:44 11/08/24 14:01 Temperature 96.9 F L 97.1 F L Pulse Rate 74 78 Respiratory Rate 15 14 Blood Pressure 134/71 130/72 Pulse Oximetry 100 99 Oxygen Flow Rate 0 0 Oxygen Delivery Method Nasal Cannula Oxygen Flow Rate 0 Objective Labs 11/08/24 04:10 11/08/24 04:10 Labs: Laboratory Results - last 24 hr 11/08/24 04:10 WBC 10.3 RBC 4.09 Hgb 12.0 Hct 35.6 L MCV 87.0 MCH 29.3 MCHC 33.6 RDW 14.3 Plt Count 252 Neut % (Auto) 79.4 H Lymph % (Auto) 12.9 L [place] % (Auto) 7.1 Eos % (Auto) 0.0 L Baso % (Auto) 0.6 Neut # (Auto) 8100 H Lymph # (Auto) 1300 [place] # (Auto) 700 Eos # (Auto) 0 Baso # (Auto) 100 Sodium 134 L Potassium 4.0 Chloride 104 Carbon Dioxide 23 BUN 12 Creatinine 0.62 Estimated GFR > 60 BUN/Creatinine Ratio 19.4 Glucose 114 H Calcium 8.9 PFSH Medical History On hormone replacement therapy Migraine without aura and without status migrainosus, not intractable History of electroconvulsive therapy Bipolar disorder in partial remission Obstructive sleep apnea Postoperative hypothyroidism History of thyroid cancer Surgical History Delivery by section (2004) H/O arthroscopy of right knee (2005) History of ankle surgery (~1989) History of Kan-en-Y gastric bypass (2015) History of thyroidectomy, total (2007) Social History household members: none Tobacco & Substance Use Smoking Status: Former smoker alcohol intake: current Assessment & Plan Time-Based Coding :: [TOTAL MINUTES] spent with patient and on the chart (including review of chart, obtaining history, exam, reviewing outside data, placing orders, documenting exam and treatment plan, and counseling patient) on [DATE]. PROFEE Charge Codes Inpatient or Observation consultation: [id number]
--- NOTE | 2024-11-08 16:00 | CM.DANOTE ---
DCP Assessment Note: Pt is a 59yo female, resident of [place], is admitted after a dog bite and lacerations. Pt's Primary Care Provider is DILEEP Saldaña and [facility] Reviewed chart and discussed with multidisciplinary team pt's medical status and initial discharge needs. Per hospitalist, pt to continue with IV antibiotic plan and will consult with Ortho Surgery. Per Ortho Surgery, pt opting for conservative measures and no surgery at this time. DCP met w/patient at bedside; introduced self and role. Patient was found in bed, alert and oriented, cooperative with assessment. Pt confirmed living situation and good support in local friends. Pt expressed preference in discharge home as soon as possible. Pt states her friend, Danay, is staying at her house currently and will be available to transport pt on 11/09 at 1100 if cleared. Plan: Anticipating dc home with friend to transport on Sat, 11/09 preferrably at 1100. CM team will follow closely for coordination of discharge plans. PILAR Arias Discharge Planning/Care Management CM Discharge Assessment Start: 11/07/24 20:48 Freq: Status: Active Protocol: Document 11/08/24 15:58 MW (Rec: 11/08/24 16:00 MW [id number]) Discharge Planning Assessment Assigned Discharge CAIN Garcia Nnp Provider DILEEP Saldaña Insurance [facility] DPOA/Assigned ALONDRA Nelson Designee Name Contact Information [phone] Advance Directives? Yes Advance Directives No on File History Provided By Patient,Medical Record Has Patient been No admitted in last 30 days? Prior Living House Arrangements Comment [place] Household Members none Type of Drives own vehicle transporation used prior to admit Independent with ADL Yes 's Is patient alert and Yes oriented? Discharge Plan Home Transportation FriendDanay Arrangement Referrals Initiated None needed Review Status In Process Please Provide Date 11/08/24 Initial DC Assessment Was Performed Next Review Type Continued Stay Review
[2024-11-08 18:00] VITALS: BP 127/76; PULSE 80; RESP 15; TEMP 36.2; O2SAT 100
[2024-11-08] MEDS: ACETAMINOPHEN 325 MG TABLET 1000 MG PO (18:42)
[2024-11-08 20:00] VITALS: BP 121/71; PULSE 81; RESP 15; TEMP 36.4; O2SAT 97
[2024-11-08] MEDS: PROGESTERONE, MICRONIZED 100 MG CAPSULE 200 MG PO (22:03)
[2024-11-09] VITALS: BP 114/61; PULSE 79; RESP 16; TEMP 36.4; O2SAT 98
[2024-11-09] MEDS: diphenhydrAMINE 50 MG/ML VIAL 25 MG IV ×2 (00:54→08:40)
[2024-11-09 04:00] VITALS: BP 116/65; PULSE 71; RESP 16; TEMP 36.2; O2SAT 100
[2024-11-09] MEDS: CLINDAMYCIN 600 MG/50 ML PIGGYBACK 50 MG IV (04:42)
[2024-11-09 08:00] VITALS: BP 148/75; PULSE 77; RESP 15; TEMP 36.6; O2SAT 99
[2024-11-09] MEDS: LEVOXYL 88 EACH PO (08:39)
[2024-11-09] MEDS: LEVOXYL 75 EACH PO (08:39)
[2024-11-09] MEDS: DOXYCYCLINE 100 MG in SODIUM CHLORIDE 0.9% 100 ML IV (08:42)
--- NOTE | 2024-11-09 08:54 | PM.DS.1 ---
History of Present Illness History of Present Illness Date Patient Seen: 11/09/24 Chief complaint: DOG BITE Narrative: 59 y/o with PMH of hypothyroidism, bipolar disorder in remission, NATHALY, migraine, hypothyroidism, Rt knee OA, presented to ED after her left upper arm was bitten by a dog. 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 From the ED: There is large 5x4 cm soft tissue defect/wound to medial left mid arm with adipose tissue exposed. With closer examination there are at least two separate areas where fascia is violated and muscle tissue is torn. Across posterior elbow there are six puncture wounds noted varying in size 0.5-2cm with adipose tissue protruding. Discussed case with Dr. Kendrick who rec's -primary closure of large defect and dress puncture wounds -will see closely in follow up On admission left upper arm is covered with a dressing. Required intensive management while in the ED. Admitted to medicine for IV abx, pain management, with orthopedic surgery evaluation Hospital course: 11/08: Left arm is painful and mildly swollen. This is mostly on the bottom aspect of the arm. The sutures all appear unremarkable there was no spontaneous drainage. Her pain is minimally controlled with 0.5 of Dilaudid IV. 11/09: Pain is improved wound observed by both myself and Dr. Kendrick consensus is discharge patient home on oral antibiotics follow up with Dr. Kendrick O: NAD, alert and oriented. Fluent speech. Lungs are clear, normal rate and effort. Heart is regular, no murmur gallop or rub. Abdomen is soft, non distended. Extremities are free of edema. Left arm is mildly swollen with minimal bruising. There was large laceration that is closed and a smaller punctate laceration that is got 1 suture. There was no discharge from either. A/P: 1. Dog bite with soft tissue infection, left upper arm. On clindamycin, doxycycline, and metronidazole due to penicillin and cephalosporin allergies. 2. Hypothyroidism 3. History of thyroid cancer with thyroidectomy. 4. Obstructive sleep apnea. 5. Bipolar. 6. Migraine headache. PLAN: Discharge home deescalate to oral doxycycline metronidazole Discharge Providers Provider Date of admission: 11/07/24 19:47 Discharge Date: 11/09/24 Primary care physician: DILEEP Saldaña Consults: 11/08/24 19:00 Consult to [facility] Routine Comment: Consulting Provider: [facility] Reason For Exam: Dog bite Reason for consultation: Dog bite Discharge provider: Jitendra Gregg MD Exam Vital Signs (past 8 hours): - 11/09/24 04:00 11/09/24 08:00 Temperature 97.1 F L 97.9 F Pulse Rate 71 77 Respiratory Rate 16 15 Blood Pressure 116/65 148/75 H Pulse Oximetry 100 99 Oxygen Flow Rate 0 0 Oxygen Delivery Method Nasal Cannula Oxygen Flow Rate 0 Objective Labs 11/08/24 04:10 11/08/24 04:10 PFS Medical History On hormone replacement therapy Migraine without aura and without status migrainosus, not intractable History of electroconvulsive therapy Bipolar disorder in partial remission Obstructive sleep apnea Postoperative hypothyroidism History of thyroid cancer Surgical History Delivery by section (2004) H/O arthroscopy of right knee (2005) History of ankle surgery (~1989) History of Kan-en-Y gastric bypass (2015) History of thyroidectomy, total (2007) Social History household members: none Smoking Status: Former smoker alcohol intake: current Discharge Plan Discharge Plan Patient Disposition: Home Discharge orders & Medications Prescriptions: New doxycycline hyclate 100 mg capsule 100 mg PO BID Qty: 20 0RF metronidazole 500 mg tablet 500 mg PO Q8H Qty: 30 0RF Continued estradiol 1.25 mg/1.25 gram (0.1 %) gel in packet 1.25 mg transdermal DAILY progesterone micronized 100 mg capsule 200 mg PO DAILY rizatriptan 10 mg tablet See Rx Instructions PO .COMPLEX Qty: 20 3RF Rx Instructions: take 1 tab at onset of headache; if no relief may repeat 1 tab after at least 2 hrs; max = 3 tabs/24 hr PO epinephrine 0.3 mg/0.3 mL auto-injector 0.3 mg IM ONCE Qty: 2 1RF Rx Instructions: as a single dose; may repeat once levothyroxine [Levoxyl] 75 mcg tablet 75 mcg PO DAILY levothyroxine [Levoxyl] 88 mcg tablet 88 mcg PO DAILY Follow up/Referrals: Eliot Dudley ARNP [Primary Care Provider, Medical] Visit Report/Discharge Packet Stand Alone Forms: Patient Portal/API Discharge Data Primary Care Provider: Eliot Dudley Attending Provider: Andriy Zhang Admit Date/Time: 11/07/24 19:47 Quality VTE Deep Vein Thrombosis/Pulmonary Embolism Present on Admission: No
--- NOTE | 2024-11-09 08:56 | PM.PN.IH.1 ---
Subjective Subjective Interval history: PATIENT SUMMARY: Carmen Lopez is a patient who was hospitalized due to a dog bite sustained on November 07, two days ago, with ongoing bleeding but no musculoskeletal issues. The wound was closed in the ED. PAST SURGICAL HISTORY: - TERESA by Dr. Burleson SUBJECTIVE: Carmen is resting comfortably in bed in no acute distress. She reports ongoing discomfort but no worsening symptoms. Afebrile. Mentating at baseline. PHYSICAL EXAM: - Constitutional: Carmen appears alert and oriented, able to engage in discussion. - Musculoskeletal: Her dressing has been unwrapped and the wounds are open to air. Focused examination of the left upper extremity: Two lacerations approximated, one on the ulnar aspect and the other on the radial aspect extending posteriorly. Presence of puncture wounds piercing the subcutaneous tissue. Larger laceration medially and ulnarly, sewn closed. Intact sensory function in median, ulnar, and radial nerve distributions. Paresthesias noted on the ulnar aspect of the fifth digit. Palpable radial and ulnar pulses. Intact flexion and extension actively through the elbow. ASSESSMENT: - Dog bite to the arm with no bony, tendon, muscle, nerve or vascular injuries status post ED closure PLAN: - Discharge home with close outpatient follow-up with me. - Antibiotics to be provided by the primary team. - Follow-up appointment scheduled for Monday of next week. DISPOSITION: - Discharge home with planned outpatient follow-up. Exam Vital Signs (past 8 hours): - 11/09/24 04:00 11/09/24 08:00 Temperature 97.1 F L 97.9 F Pulse Rate 71 77 Respiratory Rate 16 15 Blood Pressure 116/65 148/75 H Pulse Oximetry 100 99 Oxygen Flow Rate 0 0 Oxygen Delivery Method Nasal Cannula Oxygen Flow Rate 0 Objective Labs 11/08/24 04:10 11/08/24 04:10 [facility] Medical History On hormone replacement therapy Migraine without aura and without status migrainosus, not intractable History of electroconvulsive therapy Bipolar disorder in partial remission Obstructive sleep apnea Postoperative hypothyroidism History of thyroid cancer Surgical History Delivery by section (2004) H/O arthroscopy of right knee (2005) History of ankle surgery (~1989) History of Kan-en-Y gastric bypass (2016) History of thyroidectomy, total (2008) Social History household members: none Smoking Status: Former smoker alcohol intake: current Assessment & Plan Time-Based Coding :: [TOTAL MINUTES] spent with patient and on the chart (including review of chart, obtaining history, exam, reviewing outside data, placing orders, documenting exam and treatment plan, and counseling patient) on [DATE]. Quality VTE Deep Vein Thrombosis/Pulmonary Embolism Present on Admission: No IH PROFEE Rigging Foreman Document charge(s): No
--- NOTE | 2024-11-09 11:10 | CM.DPC ---
DCP Discharge Home Per Ortho and , pt medically stable to discharge home on po meds and had bedside teach for wound care and outpt f/u with Orthopedic team after discharge. No identified barriers to discharge. Per RN, dc instructions provided along with some wound care supplies and transport via friend planned before lunch today, no concerns noted. CAIN Ledbetter
--- NOTE | 2024-11-09 11:53 | W.PC.ACHO ---
Discharge note: Patient A&Ox4. Denies need for pain intervention at this time. Left arm is swollen and the discharge is serosanguinous and moderate in output. Puncture wounds present, along with intact surgical milvia. Dressing was replaced by this RN using xeroform, ABD and Coban; education provided to patient on how to replace, all questions answered. Patient sent home with supplies to replace dressing. Discharge paperwork reviewed with patient and all questions answers. Pharmacy updated, asked by this RN to add pain med script per patient request.
== END 2024-11-09 11:30 | disposition home or self-care (01) ==
LOC: ED 19:40 → AC 19:47
PROVIDERS: Admitting Provider Internal Medicine; Emergency Provider Student in an Organized Health Care Education/Training Program; PCP Registered Nurse Diabetes Educator; Visit Provider Internal Medicine
DX: S51.852A Open bite of left forearm, initial encounter (principal); W54.0XXA Bitten by dog, initial encounter; E89.0 Postprocedural hypothyroidism; Z85.850 Personal history of malignant neoplasm of thyroid; F31.77 Bipolar disorder, in partial remission, most recent episode mixed; G47.33 Obstructive sleep apnea (adult) (pediatric); G43.009 Migraine without aura, not intractable, without status migrainosus; Z87.891 Personal history of nicotine dependence
CPT/HCPCS: 12004; 36415; 73060; 73080; 80048; 85025; 96365; 96366; 96367; 96375; 96376; 99232; 99285; G0378; A9270; J1171; J1200; J1956; J2405; J7030; J7050

== ENCOUNTER → 2024-11-11 07:53 | Outpatient (CLI) | payer OTHER, SELFPAY ==
[2023-12-19 18:18] VITALS: BMI 26.6
[2024-11-07 21:41] VITALS: BMI 30.8
== END ==
LOC: CAR 07:54
PROVIDERS: PCP Registered Nurse Diabetes Educator; Referring Provider Registered Nurse Diabetes Educator; Visit Provider Registered Nurse Diabetes Educator
DX: R55 Syncope and collapse (principal)
CPT/HCPCS: 93246